=== PATIENT | female | born 1950 | race Caucasian/White ===

== ENCOUNTER 2019-09-29 07:08 | Inpatient (IN) ==
--- NOTE | 2019-09-29 07:22 | Emergency Department Note ---
History of Present Illness General Chief complaint: Chest Pain Stated complaint: SICK/CHEST PAIN Time Seen by Provider: 09/29/19 07:18 Source: patient Mode of arrival: ambulatory History of Present Illness Provider complaint: Chest pain Onset (ago): hour(s) (2 AM this morning) Location: chest and left Radiation: non-radiation Severity: moderate Pain Consistency: + intermittent Maximum Pain Intensity: 5 Quality: + other (Pressure) Exacerbated By: + other (Exertion) Associated symptoms: + nausea/vomiting (Nausea no vomiting); no cough, no fever/chills, no malaise and no shortness of breath This is a 68-year-old female with history of hypertension presenting with chest discomfort. She describes it discomfort as a pressure on the left side of her chest without radiation. She rates it a 5 out of 10 in severity. It started at 2 AM this morning. It is intermittent. It is worse with exertion. It is also associated with diaphoresis and nausea without vomiting. She denies shortness of breath or lightheadedness, cough or cold symptoms or known exposure to COVID- 19. She does complain of chronic edema to her legs without pain. Home Medications Home Medications Medication Instructions Recorded Confirmed Type levothyroxine 25 mcg PO QAM 02/11/18 09/29/19 History metoprolol tartrate 50 mg PO BID 08/08/18 09/29/19 History omega 3-dsa-xrt-fish oil [[place]-3] 2 cap PO UD 10/20/18 09/29/19 History cholecalciferol (vitamin D3) 25 1,000 units PO QAM 12/25/18 09/29/19 History mcg (1,000 unit) capsule folic acid 1 mg tablet 1 mg PO QAM 01/27/19 09/29/19 History spironolactone 50 mg tablet 50 mg PO PM 01/27/19 09/29/19 History amlodipine 10 mg tablet 5 mg PO BID #30 tab 06/03/19 09/29/19 Rx magnesium 250 mg PO 2XWK 09/29/19 09/29/19 History naproxen sodium [Aleve] 220 mg PO Q12H PRN 09/29/19 09/29/19 History Allergies Allergy/AdvReac Type Severity Reaction Status Date / Time codeine Allergy Intermediate Tachycardia Verified 09/29/19 07:52 adhesive AdvReac Mild Redness of Verified 09/29/19 07:52 Skin lisinopril AdvReac Unknown Cough Verified 09/29/19 12:34 Past Med/Surg History Medical History (Updated 09/29/19 @ 14:27 by Hieu Edmondson MD) A-fib (Ruled-out) Acute electrocardiogram changes (Acute) Chest pain (Chronic) Heart palpitations (Acute) Hypertension Hypothyroidism Mitral valve prolapse Surgical History History of cataract surgery Family History Other Cancer Hypertension Social History Preferred Language: Ghanaian Communication Ability: Effective Manager Of Operations Required: No Beliefs That Will Affect Care: None Current Living Situation: Spouse Other Information That Helps Us Care for You: No Feels Safe at Home: Yes Safety Concerns: Feels Safe At This Time Smoking Status: Never smoker Hx Alcohol Use: No Hx Substance Use: No Review of Systems See HPI for pertinent positives & negatives. and A total of 10 systems reviewed and were otherwise negative Physical Exam Vital Signs Vital Signs - 24 hr 09/29/19 07:14 09/29/19 07:29 09/29/19 08:34 Temperature 36.5 C Temperature Source Oral Pulse Rate 70 62 Pulse Rate [Apical] 65 Pulse Rhythm Regular Pulse Rhythm [Apical] Regular Pulse Strength [Apical] Normal Respiratory Rate 20 20 20 Respiratory Effort / Characteristics Non-Labored Non-Labored Spontaneous Respiratory Depth Normal Normal Respiratory Pattern Regular Blood Pressure 172/79 H Blood Pressure [Right Arm] 173/82 H Blood Pressure Mean 110 Blood Pressure Mean [Right Arm] 112 Blood Pressure Position [Right Arm] Sitting Pulse Oximetry 96 97 98 Oxygen Delivery Method Room Air Room Air Room Air Sepsis Recent Fever Within 48 Hours No Sepsis Action Taken by Nursing No Action Required 09/29/19 09:52 Temperature Temperature Source Pulse Rate Pulse Rate [Apical] 77 Pulse Rhythm Pulse Rhythm [Apical] Regular Pulse Strength [Apical] Normal Respiratory Rate 20 Respiratory Effort / Characteristics Non-Labored Spontaneous Respiratory Depth Normal Respiratory Pattern Regular Blood Pressure Blood Pressure [Right Arm] 176/106 H Blood Pressure Mean Blood Pressure Mean [Right Arm] 129 Blood Pressure Position [Right Arm] Sitting Pulse Oximetry 98 Oxygen Delivery Method Room Air Sepsis Recent Fever Within 48 Hours Sepsis Action Taken by Nursing Constitutional: Vital signs reviewed. Eyes: Pupils are equal round reactive to light. Conjunctiva are noninjected. ENT: Pharynx is clear without erythema or exudate. Mucous membranes are moist. Neck supple without meningeal signs. Respiratory: Clear to auscultation bilaterally. Breath sounds are equal bilaterally. Cardiovascular: Regular rate and rhythm. No rubs or gallops. GI: Soft, nondistended and nontender. Bowel sounds are present. Musculoskeletal: No peripheral edema. No lower extremity tenderness. Integumentary: No cyanosis. or jaundice. Neurological: The patient is awake and alert. No focal deficits. Psychiatric: Normal affect. Not anxious appearing. Course Administered Medications Losartan Potassium (Cozaar) 25 mg PO [facility] Stop: 10/29/19 12:44 Last Admin: 09/29/19 13:58 Dose: 25 mg Documented by: [id number] Discontinued Medications Aspirin (Aspirin) 162 mg PO NOW STA Stop: 09/29/19 09:27 Last Admin: 09/29/19 09:56 Dose: Not Given Documented by: [id number] Aspirin (Aspirin Chew) Confirm Administered Dose 162 mg .ROUTE .[facility] Stop: 09/29/19 09:51 Last Admin: 09/29/19 09:55 Dose: 162 mg Documented by: [id number] Lisinopril (Zestril) 5 mg PO [facility] Stop: 10/29/19 12:14 Last Admin: 09/29/19 12:34 Dose: Not Given Documented by: [id number] Nitroglycerin (Nitrostat) 0.4 mg SL NOW [facility] Stop: 09/29/19 08:02 Last Admin: 09/29/19 08:44 Dose: Not Given Documented by: [id number] Ondansetron HCl (Zofran) 4 mg IV NOW [facility] Stop: 09/29/19 07:44 Last Admin: 09/29/19 08:29 Dose: 4 mg Documented by: [id number] Ondansetron HCl (Zofran) 4 mg IV NOW [facility] Stop: 09/29/19 09:14 Last Admin: 09/29/19 09:56 Dose: 4 mg Documented by: [id number] Medical Decision Making Differential Diagnosis Unstable angina, SD, pleurisy, pneumonia, GERD Medical Records Attestation: I reviewed the patient's medical records. I did perform a limited focused review of portions of the patient's old chart on the electronic medical record. The patient has had no recent pertinent visits to this hospital. The patient did have a negative stress echocardiogram in February 2018. Home Medications Current Medication List: was personally reviewed by me Laboratory Data Attestation: I reviewed the patient's lab results. Result diagrams: 09/29/19 07:29 09/29/19 07:29 Lab Results 09/29/19 09/29/19 09/29/19 Range/Units 07:29 07:29 07:29 WBC 6.31 (4.8-10.8) K/uL RBC 5.17 (4.2-5.4) M/uL Hgb 15.6 (12.0-16.0) g/dL Hct 46.4 (37-47) % MCV 89.7 (80-100) fL MCH 30.2 (25-34) pg MCHC 33.6 (32-36) g/dL RDW Std Deviation 44.5 (36.4-46.3) fL RDW Coeff of Che 13.6 (11.5-14.5) % Plt Count 211 (130-400) K/uL MPV 10.3 (7.4-10.4) fL Immature Gran % (Auto) 0.3 % Neut % (Auto) 62.5 % Lymph % (Auto) 28.1 % [place] % (Auto) 8.1 % Eos % (Auto) 0.8 % Baso % (Auto) 0.2 % Immature Gran # (Auto) 0.02 (0.00-0.02) K/uL Neut # (Auto) 3.95 (1.4-6.5) K/uL Lymph # (Auto) 1.77 (1.2-3.4) K/uL [place] # (Auto) 0.51 (0.11-0.59) K/uL Eos # (Auto) 0.05 (0-0.5) K/uL Baso # (Auto) 0.01 (0-0.2) K/uL PT 10.5 (9.0-12.0) Seconds INR 1.0 (0.9-1.1) APTT 29.3 (21.0-31.0) Seconds PTT Ratio 1.1 Sodium 138 (136-145) mmol/L Potassium 4.1 (3.5-5.1) mmol/L Chloride 107 (98-107) mmol/L Carbon Dioxide 25 (21-32) mmol/L Anion Gap 6.0 (3-11) BUN 18 (7-18) mg/dl Creatinine 0.94 (0.6-1.2) mg/dl Est Cr Clr Drug Dosing Not Reportable Est GFR ( Amer) 73.3 Est GFR (Non-Af Amer) 63.2 BUN/Creatinine Ratio 19.6 (10-20) Glucose 132 H (70-99) mg/dl Calcium 9.7 (8.5-10.1) mg/dl Total Bilirubin 0.5 (0.2-1) mg/dl AST 16 (15-37) U/L ALT 25 (12-78) U/L Alkaline Phosphatase 83 (45-117) U/L Troponin I < 0.015 (0-0.045) ng/ml Total Protein 8.1 (6.4-8.2) gm/dl Albumin 4.2 (3.4-5.0) gm/dl Globulin 3.9 (2.5-4.0) gm/dl Albumin/Globulin Ratio 1.1 (0.9-2) Lipase 131 (73-393) U/L Imaging Data Radiologist's Impression: XR chest 1V portable HISTORY: 68 years-old Female Chest Pain acute atypical chest pain COMPARISON: Chest radiograph 10/19/2018 TECHNIQUE: Portable AP view of the chest FINDINGS: Cardiomediastinal and hilar silhouettes are within normal limits. Calcified plaque of the thoracic aortic arch. Ill-defined left basilar opacities suggestive of probable summation density. No pneumothorax, pleural effusion or overt pulmonary edema. Degenerative changes are noted within the shoulders and spine. IMPRESSION: Ill-defined left lung base opacities are suggestive of summation density versus atelectasis. Pneumonitis considered less likely. ACT 112: Negative or not required by law. The above report was generated using voice recognition software. It may contain grammatical, syntax or spelling errors. Electronically signed by: Allan Rivas M.D. 09/29/2019 8:01 AM ECG Data Attestation: I personally reviewed and interpreted this ECG as follows: Indication: + chest pain Rhythm: + normal sinus ECG Intervals/blocks: no Left bundle branch block ECG [place]: + Normal ECG ST segments: no ST depression ECG Findings: no PVCs Blood Pressure Blood Pressure Findings: Elevated blood pressure Blood Pressure Disposition: Referred to patients primary care provider ZULEYKA Plasencia I did evaluate the patient as noted above. The patient is presenting with chest pressure. Currently she has no chest pressure. She is severely hypertensive. Her heart score is 4. She was treated with nitroglycerin paste. He was also given an aspirin. IV access was established. I did place an order for continuous cardiac monitoring. The monitor showed normal sinus rhythm at a rate of 70. I did order and personally review the patient's 12-lead EKG as described above. She has no acute ischemic changes. I did order and personally reviewed the images of the patient's chest x-ray as described above. There is no pneumonia. I did order and review the patient's blood work as noted in the electronic medical record. CBC is unremarkable without leukocytosis or anemia. Electrolytes are unremarkable. Troponin is negative. The test results were discussed with the patient. We did recommend that the patient stay in the hospital for further care and evaluation. She does not qualify for the heart pathway given her heart score of 4. She has been having exertional chest pressure and so she will be hospitalized for repeat cardiac biomarkers and further evaluation. The case was discussed with the hospitalist and case hardener. Resident Physician Supervision Note: I did perform an independent evaluation and examination of this patient as described. I also saw this patient in conjunction with the resident, Dr. Alcala, and guided management for the patient. Impression & Plan Chest pain, exertional Discharge Plan Visit Data *Final* Discharge Date/Time: 09/29/19 11:08 Chief Complaint: Chest Pain Stated Complaint: SICK/CHEST PAIN ED Provider: Hieu Edmondson ED Midlevel Provider: Naga Alcala Discharge Problem: Chest pain, exertional Patient Disposition: Admitted As Inpatient Discharge Instructions Interventions: ED Discharge Assessment Last Done: 09/29/19 11:08
[2019-09-29] MEDS ORDERED: NITROGLYCERIN SL 0.4 MG/TAB TAB SL PRN ×2 (07:43→11:45)
[2019-09-29] MEDS ORDERED: ONDANSETRON INJ 2 MG/ML 2 ML VIAL IV STA ×2 (07:43→09:13)
--- NOTE | 2019-09-29 07:48 | Emergency Department Note ---
ED Visit Note I assisted Dr. Edmondson in the care of this patient. Please see attending attestation. Naga Alcala DO Resident, Family & Community Medicine, [facility] . Resident Activity Tracking Resident Involvement: Resident Care Provided Care Provided: Adult ED
[2019-09-29] MEDS ORDERED: NITROGLYCERIN SL 0.4 MG/TAB TAB SL STA (08:01)
--- NOTE | 2019-09-29 08:03 | XRay Report ---
XR chest 1V portable HISTORY: 68 years-old Female Chest Pain acute atypical chest pain COMPARISON: Chest radiograph 10/19/2018 TECHNIQUE: Portable AP view of the chest FINDINGS: Cardiomediastinal and hilar silhouettes are within normal limits. Calcified plaque of the thoracic ao rtic arch. Ill-defined left basilar opacities suggestive of probable summation density. No pneumothor ax, pleural effusion or overt pulmonary edema. Degenerative changes are noted within the shoulders an d spine. IMPRESSION: Ill-defined left lung base opacities are suggestive of summation density versus atelectas is. Pneumonitis considered less likely. ACT 112: Negative or not required by law. The above report was generated using voice recognition software. It may contain grammatical, syntax o r spelling errors. Electronically signed by: Allan Rivas M.D. 09/29/2019 8:01 AM
[2019-09-29 08:10] LABS: Basophils # (auto) 0.01 K/uL (0-0.2); Basophils % (auto) 0.2 %; Eosinophils # (auto) 0.05 K/uL (0-0.5); Eosinophils % (auto) 0.8 %; Hematocrit (blood only) 46.4 % (37-47); Hemoglobin 15.6 g/dL (12.0-16.0); Immature Granulocytes # (auto) 0.02 K/uL (0.00-0.02); Immature Granulocytes % (auto) 0.3 %; Lymphocytes # (auto) 1.77 K/uL (1.2-3.4); Lymphocytes % (auto) 28.1 %; Mean Corpuscular Hemoglobin 30.2 pg (25-34); Mean Corpuscular Hgb Conc 33.6 g/dL (32-36); Mean Corpuscular Volume 89.7 fL (80-100); Mean Platelet Volume 10.3 fL (7.4-10.4); Monocytes # (auto) 0.51 K/uL (0.11-0.59); Monocytes % (auto) 8.1 %; Neutrophils # (auto) 3.95 K/uL (1.4-6.5); Neutrophils % (auto) 62.5 %; Platelet Count 211 K/uL (130-400); RDW Coefficient of Variation 13.6 % (11.5-14.5); RDW Standard Deviation 44.5 fL (36.4-46.3); Red Blood Count 5.17 M/uL (4.2-5.4); White Blood Count 6.31 K/uL (4.8-10.8)
[2019-09-29 08:16] LABS: Albumin Level 4.2 gm/dl (3.4-5.0); BUN Creatinine Ratio 19.6 (10-20); Blood Urea Nitrogen 18 mg/dl (7-18); Calcium 9.7 mg/dl (8.5-10.1); Carbon Dioxide 25 mmol/L (21-32); Chloride 107 mmol/L (98-107); Est GFR (African American) 73.3; Est GFR (Non-African American) 63.2; Glucose 132 mg/dl (70-99); Lipase 131 U/L (73-393); Potassium 4.1 mmol/L (3.5-5.1); Sodium 138 mmol/L (136-145)
[2019-09-29 08:21] LABS: Alanine Aminotransferase 25 U/L (12-78); Albumin Globulin Ratio 1.1 (0.9-2); Alkaline Phosphatase 83 U/L (45-117); Aspartate Aminotransferase 16 U/L (15-37); Bilirubin,Total 0.5 mg/dl (0.2-1); Globulin 3.9 gm/dl (2.5-4.0); Total Protein 8.1 gm/dl (6.4-8.2); Troponin I < 0.015 ng/ml (0-0.045)
[2019-09-29 08:22] LABS: Partial Thromboplastin Ratio 1.1; Partial Thromboplastin Time 29.3 Seconds (21.0-31.0); Prothrombin Time 10.5 Seconds (9.0-12.0)
[2019-09-29] MEDS ORDERED: ASPIRIN CHEW 324 MG PO STA (09:26)
[2019-09-29] MEDS ORDERED: ASPIRIN 81 MG CHEW ONE (09:50)
--- NOTE | 2019-09-29 11:17 | History & Physical Report ---
Date of Service September 29, 2019 Assessment & Plan (1) Chest pain: Pt is 68 y/o F with PMH HTN, hypothyroidism, PACs, PVCs on metoprolol, h/o atypical CP presented to ER with c/o waking up at 2 AM today, feeling, + nausea and left sided chest heaviness. Denies SOB, vomiting, abdominal pain, diarrhea, dizziness, palpitations. Reported 77 degrees F in her house. Pt states this chest heaviness feels like her chronic intermittent CP however she was nauseated and hot with this episode In ER pt afebrile, P: 70, R: 20, BP: 172/79, 176/106, 96-98% on RA. No leukocytosis, initial troponin negative, EKG sinus rhythm without acute ST changes -In ER CP free, nausea relieved with Zofran IV -R/O ACS. Risk factors: HTN, obesity; CP may also be secondary to HTN -Monitor Vitals -Repeat EKG in am -Will trend troponin -Echo -lipid panel, A1c in AM -Aspirin -Continue metoprolol tartrate -Nitro prn CP and repeat EKG for CP -Cardiology consult (2) Hypertension: Hypertensive in ER up to 176/106 -Continue metoprolol tartrate, spironolactone, amlodipine -Start lisinopril 5mg daily -Montior BP (3) Hypothyroidism: -TSH pending -Continue levothyroxine DVT Prophylaxis -SCDs Full Code as per discussion with pt Follows with Dr Oliveros for routine care Pt was seen and care coordinated with Dr Junior. See addendum History of Present Illness Chief Complaint: Chest heaviness, nausea Primary Care Provider: Zain Oliveros MD Pt is 68 y/o F with PMH HTN, hypothyroidism, PACs, PVCs on metoprolol, h/o atypical CP presented to ER with c/o nausea and chest heaviness that started around 2:00AM this morning. Pt states woke up and felt very hot, was sweating an d had left sided chest heaviness. She denies any SOB with this. Reports tried to sit still because moving made her nausea worse. Denies any vomiting, abdominal pain, diarrhea, dizziness, palpitations. Pt states is was 77F in her house when she woke up in the middle of the night. She reports taking 162mg aspirin and going out to living room and felt like she "cooled off" but still had nausea and chest heaviness. Pt states this chest heaviness feels like her chronic intermittent CP however she was nauseated and hot with this episode. She reports has been having BLE edema that improves with elevated legs and feels this is more since being on amlodipine. She follows with [facility] and in 01/2019 was instructed to decrease amlodipine to 7.5mg daily, however pt states has been taking 5mg BID. Reports taking her spironolactone at bedtime and states had 5mg amlodipine and 50mg metoprolol tartrate this morning. Pt states that in past she was on irbesartan however did not feel that was effective for her BP. Pt states doesn't check her BP regularly at home, but states took BP in middle of night and was 200/100. States she made a salad with mushrooms yesterday, no other family members with illness. Denies fever/chills, diaphoresis, N/V/D/C, [place], dizziness, syncope, vision changes, neck pain, orthopnea, palpitations, cough, sore throat, choking, otalgia, rhinorrhea, abdominal pain, paresthesias, weakness, extremity weakness, extremity edema, rashes, urinary symptoms. H/O cardiac cath in 2010 with normal coronary arteries H/O exercise stress test in 02/2018 with no inducible ischemia Echo 02/2018: EF: 60-65%, no wall motion abnormalities, no significant valvular pathology. In ER pt was given additional 162mg aspirin and zofran and she reports no further nausea and denies any chest heaviness or CP. Allergies Allergy/AdvReac Type Severity Reaction Status Date / Time codeine Allergy Intermediate Tachycardia Verified 09/29/19 07:52 adhesive AdvReac Mild Redness of Verified 09/29/19 07:52 Skin lisinopril AdvReac Unknown Cough Verified 09/29/19 12:34 Home Medications Home Medications Medication Instructions Recorded Confirmed Type levothyroxine 25 mcg PO QAM 02/11/18 09/29/19 History metoprolol tartrate 50 mg PO BID 08/08/18 09/29/19 History omega 6-mda-dcg-fish oil [[place]-3] 2 cap PO UD 10/20/18 09/29/19 History cholecalciferol (vitamin D3) 25 1,000 units PO QAM 12/25/18 09/29/19 History mcg (1,000 unit) capsule folic acid 1 mg tablet 1 mg PO QAM 01/27/19 09/29/19 History spironolactone 50 mg tablet 50 mg PO PM 01/27/19 09/29/19 History amlodipine 10 mg tablet 5 mg PO BID #30 tab 06/03/19 09/29/19 Rx magnesium 250 mg PO 2XWK 09/29/19 09/29/19 History naproxen sodium [Aleve] 220 mg PO Q12H PRN 09/29/19 09/29/19 History Past Med/Surg History Medical History (Updated 09/29/19 @ 11:25 by Abbey Sandhu PA-C) A-fib (Ruled-out) Acute electrocardiogram changes (Acute) Chest pain (Chronic) Heart palpitations (Acute) Hypertension Hypothyroidism Mitral valve prolapse Surgical History History of cataract surgery Family History Other Cancer Hypertension Social History Preferred Language: St [place]ian Communication Ability: Effective [employer] Feeder Required: No Beliefs That Will Affect Care: None Current Living Situation: Family Feels Safe at Home: Yes Smoking Status: Never smoker Hx Alcohol Use: No Hx Substance Use: No Review of Systems Review of Systems: All systems reviewed & are unremarkable except as noted in HPI & below Physical Exam Physical Exam: General: no distress, obese Head: normocephalic, atraumatic Eyes: PERRL, EOM's intact, conjunctiva non-injected, anicteric ENT: normal inspection external ears, nose, mucous membranes moist Neck: supple, trachea midline Lungs: clear, no respiratory distress, no wheezing/rhonchi/rales CV: RRR, no murmur, no JVD, trace pretibial edema; chest wall non-tender to palpation Abd: normal BS, soft, non-tender Ext: no cyanosis, no calf tenderness Neuro: A&O x 3, no focal deficits noted, normal affect Skin: warm, dry Results & Data Results & Data ([facility]) Vital Signs (Past 12 Hours) Vital Signs Temp Pulse Pulse Resp BP BP Pulse Ox 09/29/19 09:52 77 20 176/106 H 98 09/29/19 08:34 65 20 173/82 H 98 09/29/19 07:29 62 20 97 09/29/19 07:14 36.5 C 70 20 172/79 H 96 Laboratory Results Short CBC 09/29/19 Range/Units 07:29 WBC 6.31 (4.8-10.8) K/uL Hgb 15.6 (12.0-16.0) g/dL Hct 46.4 (37-47) % Plt Count 211 (130-400) K/uL BMP 09/29/19 07:29 Sodium 138 Potassium 4.1 Chloride 107 Carbon Dioxide 25 BUN 18 Creatinine 0.94 Glucose 132 H Calcium 9.7 Cardiac Enzymes 09/29/19 Range/Units 07:29 Troponin I < 0.015 (0-0.045) ng/ml Liver Function 09/29/19 Range/Units 07:29 Total Bilirubin 0.5 (0.2-1) mg/dl AST 16 (15-37) U/L ALT 25 (12-78) U/L Alkaline Phosphatase 83 (45-117) U/L Albumin 4.2 (3.4-5.0) gm/dl Diagnostic Findings CXR: IMPRESSION: Ill-defined left lung base opacities are suggestive of summation d ensity versus atelectasis. Pneumonitis considered less likely. ECG Rate (beats per minute): 65 Rhythm: sinus rhythm Change: no significant change Supervising Physician Co-Signing Physician Notes Pt was seen and examined. Agreed with Abbey HOLGUIN exam, assessment and plan. 68 y/o F with PMH HTN, hypothyroidism, PACs, PVCs on metoprolol, h/o atypical CP presented to ER with c/o chest heaviness associated with sweating and nausea. Pt said that she woke up at 2am and felt very hot, was sweating and had left sided chest heaviness. She said that the Temp in the house was 77F. She said that she checked her BP and it was above 200's systolic. She said that she had history of atypical chest pain, but this one is different because of the nausea and sweating. Currently lying in bed comfortable. Denies any vomiting, chest pain, abdominal pain, diarrhea, dizziness, palpitations and SOB. On exam, Heart rate was regular, Clear lung sound, No abdominal tenderness, No edema. Troponin on admission normal. EKG showed no acute ischemic changes. Will trend troponinx2, Check ECHO. Cardiology consult. Will continue aspirin, statin, metoprolol. BP elevated, will add Losartan and continue Metoprolol and Spironolactone. Will monitor BMP as well in am. Continue monitor in tele. MD [place] (1) Chest pain Chest pain type: unspecified Qualified Code(s): R07.9 - Chest pain, unspecified
[2019-09-29] MEDS ORDERED: ONDANSETRON INJ 2 MG/ML 2 ML VIAL IV PRN (11:45)
[2019-09-29] MEDS ORDERED: ACETAMINOPHEN 325 MG TAB PO PRN (11:45)
[2019-09-29] MEDS ORDERED: lisinopriL 5 MG TAB PO SCH (12:15)
--- NOTE | 2019-09-29 13:36 | Cardiology Consultation ---
Date of Consultation September 29, 2019 Assessment & Plan (1) Atypical chest pain: Martine Boss is a 68y/o F with PMH significant for hypertension, hypothyroidism, atypical chest pain, and lower extremity edema; presented to the hospital for evaluation of chest discomfort that started overnight. Atypical chest pain: - atypical features of chest pain, lend to non-cardiac causes - two undetectable Troponins more than 4 hours after chest pain event - Echo form 09/29/2019 demonstrated LVEF 60-65%, no regional wall abnormalities, no significant valvular pathology - no current indication for further cardiac testing Uncontrolled Hypertension: - upon waking overnight had BP 207/110; elevated BP maintained in ED - previously difficult to control BP with elevated ranges dating back to office visits 08/2018 & 10/2018 demonstrated BPs as elevated as 241/91 - current home regimen includes Metroprolol, spironolactone, and amlodipine - previously had cough while on ALFRED - Losartan 25mg started, would advised discontinuation of Amlodipine - no described apneic episodes however sleep study would be indicated as this patient's BP continues to remain uncontrolled Peripheral edema: - likely 2/2 chronic use of Amlodipine given Echo demonstrating normal left ventricular systolic function - would discontinue amlodipine at this time in setting of worsening edema with uncontrolled HTN (2) Uncontrolled hypertension: (3) Peripheral edema: Supervising Physician Co-Signing Physician Notes Patient seen and examined with Dr. Shea. Agree with his assessment and plan. History of Present Illness Attending Physician: Evi Junior MD History of Present Illness Martine Boss is a 68y/o F with PMH significant for hypertension, hypothyroidism, atypical chest pain, and lower extremity edema; presented to the hospital for evaluation of chest discomfort that started overnight. She woke at about 2am this morning chest tightness, with increased sweats, and feelings of nausea. This tightness was mainly noticed in three spots, center of her chest, under her left breast, and in the center of her back. The pain did not radiate to her arm, jaw, or back. This chest discomfort was similar in quality to episodes she previously had when she was seen and evaluated in February 2018, and at that time she was told she had PACs and PVCs. After taking two 81mg tablets she no longer felt hot nor had maintained sweats, however the nausea and chest heaviness was maintained. Had complete relief of chest heaviness and nausea in ED following administration of Zofran and two more 81mg tablets of aspirin. She denies vomiting, diarrhea, constipation, dizziness, syncope, vision change, shortness of breath when laying flat; but notes that she has had lower extremity edema since starting on Amlodipine several years ago, occasionally this will worsen to the point that she takes a second diuretic in order to move the fluid. The fluid/swelling is improved with elevation of her feet. Allergies Allergy/AdvReac Type Severity Reaction Status Date / Time codeine Allergy Intermediate Tachycardia Verified 09/29/19 07:52 adhesive AdvReac Mild Redness of Verified 09/29/19 07:52 Skin lisinopril AdvReac Unknown Cough Verified 09/29/19 12:34 Home Medications Home Medications Medication Instructions Recorded Confirmed Type levothyroxine 25 mcg PO QAM 02/11/18 09/29/19 History metoprolol tartrate 50 mg PO BID 08/08/18 09/29/19 History omega 1-uyz-jmn-fish oil [[place]-3] 2 cap PO UD 10/20/18 09/29/19 History cholecalciferol (vitamin D3) 25 1,000 units PO QAM 12/25/18 09/29/19 History mcg (1,000 unit) capsule folic acid 1 mg tablet 1 mg PO QAM 01/27/19 09/29/19 History spironolactone 50 mg tablet 50 mg PO PM 01/27/19 09/29/19 History amlodipine 10 mg tablet 5 mg PO BID #30 tab 06/03/19 09/29/19 Rx magnesium 250 mg PO 2XWK 09/29/19 09/29/19 History naproxen sodium [Aleve] 220 mg PO Q12H PRN 09/29/19 09/29/19 History Patient History Medical History (Updated 09/29/19 @ 14:27 by Hieu Edmondson MD) A-fib (Ruled-out) Acute electrocardiogram changes (Acute) Chest pain (Chronic) Heart palpitations (Acute) Hypertension Hypothyroidism Mitral valve prolapse Surgical History History of cataract surgery Family History Other Cancer Hypertension Social History Preferred Language: Sinhala Communication Ability: Effective Associate Application Developer Required: No Beliefs That Will Affect Care: None Current Living Situation: Spouse Other Information That Helps Us Care for You: No Feels Safe at Home: Yes Safety Concerns: Feels Safe At This Time Smoking Status: Never smoker Hx Alcohol Use: No Hx Substance Use: No Review of Systems Review of Systems: All systems reviewed & are unremarkable except as noted in HPI & below Physical Exam Constitutional: WD/WN, vitals as above Eyes: PERRL, conjunctivae normal, anicteric sclerae ENMT: external ear and nose normal, oropharynx normal Neck: normal visual inspection Respiratory: normal respiratory effort, lungs clear to auscultation Auscultation: no crackles, no rales and no wheezes Cardiovascular: Rate/Rhythm: regular rate and regular rhythm Heart Sounds: normal S1 and normal S2; no gallop, no murmur and no cardiac rub Vessels: no JVD Extremities: + pedal edema (2+ pitting b/l LE) Gastrointestinal (Abdomen): normal bowel sounds, soft, nontender, no hepatosplenomegaly Skin: + skin tightening (venous stasis changes to b/l LE) Results & Data ([facility]) Vital Signs (Past 12 Hours) Vital Signs Temp Pulse Pulse Resp BP BP Pulse Ox 09/29/19 12:25 36.5 C 63 18 166/74 H 96 09/29/19 09:52 77 20 176/106 H 98 09/29/19 08:34 65 20 173/82 H 98 09/29/19 07:29 62 20 97 09/29/19 07:14 36.5 C 70 20 172/79 H 96 Laboratory Results 09/29/19 09/29/19 09/29/19 Range/Units 12:50 07:29 07:29 WBC (4.8-10.8) K/uL RBC (4.2-5.4) M/uL Hgb (12.0-16.0) g/dL Hct (37-47) % MCV (80-100) fL MCH (25-34) pg MCHC (32-36) g/dL RDW Std Deviation (36.4-46.3) fL RDW Coeff of Che (11.5-14.5) % Plt Count (130-400) K/uL MPV (7.4-10.4) fL Immature Gran % (Auto) % Neut % (Auto) % Lymph % (Auto) % Eagle % (Auto) % Eos % (Auto) % Baso % (Auto) % Immature Gran # (Auto) (0.00-0.02) K/uL Neut # (Auto) (1.4-6.5) K/uL Lymph # (Auto) (1.2-3.4) K/uL Eagle # (Auto) (0.11-0.59) K/uL Eos # (Auto) (0-0.5) K/uL Baso # (Auto) (0-0.2) K/uL PT 10.5 (9.0-12.0) Seconds INR 1.0 (0.9-1.1) APTT 29.3 (21.0-31.0) Seconds PTT Ratio 1.1 Sodium 138 (136-145) mmol/L Potassium 4.1 (3.5-5.1) mmol/L Chloride 107 (98-107) mmol/L Carbon Dioxide 25 (21-32) mmol/L Anion Gap 6.0 (3-11) BUN 18 (7-18) mg/dl Creatinine 0.94 (0.6-1.2) mg/dl Est Cr Clr Drug Dosing Not Reportable Est GFR ( Amer) 73.3 Est GFR (Non-Af Amer) 63.2 BUN/Creatinine Ratio 19.6 (10-20) Glucose 132 H (70-99) mg/dl Calcium 9.7 (8.5-10.1) mg/dl Total Bilirubin 0.5 (0.2-1) mg/dl AST 16 (15-37) U/L ALT 25 (12-78) U/L Alkaline Phosphatase 83 (45-117) U/L Troponin I Pending < 0.015 (0-0.045) ng/ml Total Protein 8.1 (6.4-8.2) gm/dl Albumin 4.2 (3.4-5.0) gm/dl Globulin 3.9 (2.5-4.0) gm/dl Albumin/Globulin Ratio 1.1 (0.9-2) Lipase 131 (73-393) U/L 05/26/20 Range/Units 07:29 WBC 6.31 (4.8-10.8) K/uL RBC 5.17 (4.2-5.4) M/uL Hgb 15.6 (12.0-16.0) g/dL Hct 46.4 (37-47) % MCV 89.7 (80-100) fL MCH 30.2 (25-34) pg MCHC 33.6 (32-36) g/dL RDW Std Deviation 44.5 (36.4-46.3) fL RDW Coeff of Che 13.6 (11.5-14.5) % Plt Count 211 (130-400) K/uL MPV 10.3 (7.4-10.4) fL Immature Gran % (Auto) 0.3 % Neut % (Auto) 62.5 % Lymph % (Auto) 28.1 % Eagle % (Auto) 8.1 % Eos % (Auto) 0.8 % Baso % (Auto) 0.2 % Immature Gran # (Auto) 0.02 (0.00-0.02) K/uL Neut # (Auto) 3.95 (1.4-6.5) K/uL Lymph # (Auto) 1.77 (1.2-3.4) K/uL Eagle # (Auto) 0.51 (0.11-0.59) K/uL Eos # (Auto) 0.05 (0-0.5) K/uL Baso # (Auto) 0.01 (0-0.2) K/uL PT (9.0-12.0) Seconds INR (0.9-1.1) APTT (21.0-31.0) Seconds PTT Ratio Sodium (136-145) mmol/L Potassium (3.5-5.1) mmol/L Chloride (98-107) mmol/L Carbon Dioxide (21-32) mmol/L Anion Gap (3-11) BUN (7-18) mg/dl Creatinine (0.6-1.2) mg/dl Est Cr Clr Drug Dosing Est GFR ( Amer) Est GFR (Non-Af Amer) BUN/Creatinine Ratio (10-20) Glucose (70-99) mg/dl Calcium (8.5-10.1) mg/dl Total Bilirubin (0.2-1) mg/dl AST (15-37) U/L ALT (12-78) U/L Alkaline Phosphatase (45-117) U/L Troponin I (0-0.045) ng/ml Total Protein (6.4-8.2) gm/dl Albumin (3.4-5.0) gm/dl Globulin (2.5-4.0) gm/dl Albumin/Globulin Ratio (0.9-2) Lipase (73-393) U/L Medications Administered Current Inpatient Medications Acetaminophen (Tylenol) 650 mg PO Q4H PRN PRN Reason: Pain or Fever Stop: 10/29/19 11:44 Amlodipine Besylate (Norvasc) 5 mg PO BID [facility] Stop: 10/29/19 20:59 Aspirin (Ecotrin Ectab) 81 mg PO QAM [facility] Stop: 10/30/19 08:59 Levothyroxine Sodium (Synthroid) 25 mcg PO DAILYBB [facility] Stop: 10/30/19 06:29 Losartan Potassium (Cozaar) 25 mg PO QAM [facility] Stop: 10/29/19 12:44 Metoprolol Tartrate (Lopressor) 50 mg PO BID [facility] Stop: 10/29/19 20:59 Nitroglycerin (Nitrostat) 0.4 mg SL UD PRN PRN Reason: Chest Pain Stop: 10/29/19 11:44 Ondansetron HCl (Zofran) 4 mg IV Q6H PRN PRN Reason: Nausea Stop: 10/29/19 11:44 Spironolactone (Aldactone) 50 mg PO PM [facility] Stop: 10/29/19 20:59 Vitamin D (Vitamin D3) 1,000 units PO QAM [facility] Stop: 10/30/19 08:59 PG Care Time/CCT Total # of Minutes Spent Total Time Spent with Patient: Total time spent is greater than 50% in co ordination of care (as documented) at patient's floor/unit and/or counseling patient: Coding Level of Care Code 96288 Inpt Consult Level 4 Diagnoses Atypical chest pain R07.89 Uncontrolled hypertension I10 Peripheral edema R60.9 Resident Activity Tracking Resident Involvement: Resident Care Provided Care Provided: Adult Hospital Medicine (Cardiology)
[2019-09-29] MEDS: LOSARTAN POTASSIUM 25 MG TAB PO SCH (13:58)
--- NOTE | 2019-09-29 16:05 | Electrocardiogram Report ---
Test Reason : Blood Pressure : / mmHG Vent. Rate : 065 BPM Atrial Rate : 065 BPM P-R Int : 136 ms QRS Dur : 074 ms QT Int : 410 ms P-R-T Axes : 029 041 027 degrees QTc Int : 426 ms Normal sinus rhythm Normal ECG When compared with ECG of 19-OCT-2018 23:40, No significant change was found Confirmed by Malcolm Perez ([id number]) on 09/29/2019 4:04:45 PM Referred By: REFERRED SELF Confirmed By:Malcolm Perez
--- NOTE | 2019-09-29 16:06 | XCELERA ---
[id number]
[2019-09-29] MEDS: METOPROLOL TARTRATE 50 MG TAB PO SCH (20:29)
[2019-09-29] MEDS ORDERED: SPIRONOLACTONE 25 MG TAB PO SCH (21:00)
[2019-09-29] MEDS ORDERED: AMLODIPINE BESYLATE 5 MG TAB PO SCH (21:00)
[2019-09-30] MEDS ORDERED: LEVOTHYROXINE SODIUM 25 MCG TABLET PO SCH (06:30)
[2019-09-30] MEDS: LOSARTAN POTASSIUM 25 MG TAB PO SCH (08:02)
[2019-09-30] MEDS: METOPROLOL TARTRATE 50 MG TAB PO SCH (08:02)
[2019-09-30 08:17] LABS: Hematocrit (blood only) 45.2 % (37-47); Mean Corpuscular Hemoglobin 30.1 pg (25-34); Mean Corpuscular Hgb Conc 33.2 g/dL (32-36); Mean Corpuscular Volume 90.6 fL (80-100); Platelet Count 188 K/uL (130-400); RDW Coefficient of Variation 13.7 % (11.5-14.5); RDW Standard Deviation 45.3 fL (36.4-46.3); Red Blood Count 4.99 M/uL (4.2-5.4); White Blood Count 4.96 K/uL (4.8-10.8)
[2019-09-30 08:29] LABS: Estimated Average Glucose 128 mg/dl; Hemoglobin A1C 6.1 % (4.5-5.6)
[2019-09-30 08:49] LABS: BUN Creatinine Ratio 17.7 (10-20); Calcium 9.5 mg/dl (8.5-10.1); Creatinine Clr Calc Pharmacy 56.6 ml/min; Est GFR (Non-African American) 58.7; Potassium 4.1 mmol/L (3.5-5.1)
[2019-09-30 08:59] LABS: Thyroid Stimulating Hormone 3.09 uIu/ml (0.300-4.500)
[2019-09-30] MEDS ORDERED: ASPIRIN 81 MG ECTAB PO SCH (09:00)
[2019-09-30] MEDS ORDERED: CHOLECALCIFEROL 1,000 UNITS 25 MCG TAB PO SCH (09:00)
--- NOTE | 2019-09-30 11:45 | Hospitalist Progress Note ---
Date of Service September 30, 2019 Assessment & Plan (1) Chest pain: ATYPICAL CHEST PAIN PERIPHERAL EDEMA -Pt is 68 y/o F with PMH HTN, hypothyroidism, PACs, PVCs on metoprolol, h/o atypical CP presented to ER with c/o waking up at 2 AM today, feeling, + nausea and left sided chest heaviness. Denies SOB, vomiting, abdominal pain, diarrhea, dizziness, palpitations. Reported 77 degrees F in her house. Pt states this chest heaviness feels like her chronic intermittent CP however she was nauseated and hot with this episode -In ER pt afebrile, P: 70, R: 20, BP: 172/79, 176/106, 96-98% on RA. No leukocytosis, initial troponin negative, EKG sinus rhythm without acute ST changes -In ER CP free, nausea relieved with Zofran IV Patient was evaluated by cardiology service " atypical features of chest pain, lend to non-cardiac causes - two undetectable Troponins more than 4 hours after chest pain event - Echo form 09/29/2019 demonstrated LVEF 60-65%, no regional wall abnormalities, no significant valvular pathology - no current indication for further cardiac testing" "- no described apneic episodes however sleep study would be indicated as this patient's BP continues to remain uncontrolled" "Peripheral edema: likely 2/2 chronic use of Amlodipine given Echo demonstrating normal left ventricular systolic function. would discontinue amlodipine at this time in setting of worsening edema with uncontrolled HTN" -discharge medication of losartan of 25 mg daily printed as paper prescription. Losartan medication is to replace amlodipine medication for blood pressure when discharged home -Patient preferred pharmacy is [address] [place] [address]. -Patient will need to follow up with primary care doctor for follow up of blood pressures -scheduled appointment: 10/06/2019 12:00 PM Provider DO [facility] (2) Hypertension: Hypertensive in ER up to 176/106 -Continue metoprolol tartrate, spironolactone -losartan daily (3) Hypothyroidism: -TSH is 3 -Continue levothyroxine Admission and Anticipated Discharge Date Admission Date: September 29, 2019 Subjective patient at the breakfast without symptoms. no nausea. no vomiting. no chest pain. no back pain. no shortness of breath. blood pressure better today. no dizziness. no lightheadedness. discharge plans discussed at length Review of Systems Review of Systems: All systems reviewed & are unremarkable except as noted in Subjective Physical Exam Constitutional: WD/WN, vitals as above Eyes: PERRL, conjunctivae normal, anicteric sclerae ENMT: external ear and nose normal, oropharynx normal Neck: normal visual inspection Respiratory: normal respiratory effort, lungs clear to auscultation Cardiovascular: Rate/Rhythm: + bradycardic (bilateral pedal edema) Gastrointestinal (Abdomen): normal bowel sounds, soft, nontender, no hepatosplenomegaly Musculoskeletal: Head/Neck/Chest: normocephalic and head atraumatic Neurologic: PERRL, EOMI, accommodation nl, no face palsy, no dysarthria CN's II-XI intact bilaterally Psychiatric: A+Ox3, euthymic affect Results & Data Results & Data ([facility]) Vital Signs (Past 12 Hours) Vital Signs Temp Pulse Resp BP Pulse Ox 09/30/19 07:41 36.4 C L 62 18 134/72 93 09/30/19 03:54 36.7 C 70 18 125/53 L 97 09/29/19 23:48 36.8 C 66 20 96/57 L 96 (1) Chest pain Chest pain type: unspecified Qualified Code(s): R07.9 - Chest pain, unspecified
[2019-09-30 11:49] VITALS: BP 138/72; PULSE 58; TEMP 97.7; O2SAT 92
--- NOTE | 2019-09-30 11:52 | Discharge Summary ---
Date of Service September 30, 2019 Admission HPI Per Admitting Provider Pt is 68 y/o F with PMH HTN, hypothyroidism, PACs, PVCs on metoprolol, h/o atypical CP presented to ER with c/o nausea and chest heaviness that started around 2:00AM this morning. Pt states woke up and felt very hot, was sweating and had left sided chest heaviness. She denies any SOB with this. Reports tried to sit still because moving made her nausea worse. Denies any vomiting, abdominal pain, diarrhea, dizziness, palpitations. Pt states is was 77F in her house when she woke up in the middle of the night. She reports taking 162mg aspirin and going out to living room and felt like she "cooled off" but still had nausea and chest heaviness. Pt states this chest heaviness feels like her chronic intermittent CP however she was nauseated and hot with this episode. She reports has been having BLE edema that improves with elevated legs and feels this is more since being on amlodipine. She follows with [facility] Cardiology and in 01/2019 was instructed to decrease amlodipine to 7.5mg daily, however pt states has been taking 5mg BID. Reports taking her spironolactone at bedtime and states had 5mg amlodipine and 50mg metoprolol tartrate this morning. Pt states that in past she was on irbesartan however did not feel that was effective for her BP. Pt states doesn't check her BP regularly at home, but states took BP in middle of night and was 200/100. States she made a salad with mushrooms yesterday, no other family members with illness. Denies fever/chills, diaphoresis, N/V/D/C, [place], dizziness, syncope, vision changes, neck pain, orthopnea, palpitations, cough, sore throat, choking, otalgia, rhinorrhea, abdominal pain, paresthesias, weakness, extremity weakness, extremity edema, rashes, urinary symptoms. H/O cardiac cath in 2010 with normal coronary arteries H/O exercise stress test in 02/2018 with no inducible ischemia Echo 02/2018: EF: 60-65%, no wall motion abnormalities, no significant valvular pathology. In ER pt was given additional 162mg aspirin and zofran and she reports no further nausea and denies any chest heaviness or CP. Principal Diagnosis Atypical Chest Pain Hypertension Peripheral Edema Hypothyroidism Discharge Exam Constitutional WD/WN, vitals as above Eyes PERRL, conjunctivae normal, anicteric sclerae ENMT external ear and nose normal, oropharynx normal Neck normal visual inspection Respiratory normal respiratory effort, lungs clear to auscultation Cardiovascular Rate/Rhythm: + bradycardic (bilateral pedal edema) Gastrointestinal (Abdomen) normal bowel sounds, soft, nontender, no hepatosplenomegaly Musculoskeletal Head/Neck/Chest: normocephalic and head atraumatic Neurologic PERRL, EOMI, accommodation nl, no face palsy, no dysarthria CN's II-XI intact bilaterally Psychiatric A+Ox3, euthymic affect Discharge Data Allergies Allergy/AdvReac Type Severity Reaction Status Date / Time codeine Allergy Intermediate Tachycardia Verified 09/29/19 07:52 adhesive AdvReac Mild Redness of Verified 09/29/19 07:52 Skin lisinopril AdvReac Unknown Cough Verified 09/29/19 12:34 Consultations 09/29/19 10:25 ED Decision to Admit Stat 09/29/19 11:57 Consult Cardiology Routine Hospital Course (1) Chest pain: ATYPICAL CHEST PAIN PERIPHERAL EDEMA -Pt is 68 y/o F with PMH HTN, hypothyroidism, PACs, PVCs on metoprolol, h/o atypical CP presented to ER with c/o waking up at 2 AM today, feeling, + nausea and left sided chest heaviness. Denies SOB, vomiting, abdominal pain, diarrhea, dizziness, palpitations. Reported 77 degrees F in her house. Pt states this chest heaviness feels like her chronic intermittent CP however she was nauseated and hot with this episode -In ER pt afebrile, P: 70, R: 20, BP: 172/79, 176/106, 96-98% on RA. No leukocytosis, initial troponin negative, EKG sinus rhythm without acute ST changes -In ER CP free, nausea relieved with Zofran IV Patient was evaluated by cardiology service " atypical features of chest pain, lend to non-cardiac causes - two undetectable Troponins more than 4 hours after chest pain event - Echo form 09/29/2019 demonstrated LVEF 60-65%, no regional wall abnormalities, no significant valvular pathology - no current indication for further cardiac testing" "- no described apneic episodes however sleep study would be indicated as this patient's BP continues to remain uncontrolled" "Peripheral edema: likely 2/2 chronic use of Amlodipine given Echo demonstrating normal left ventricular systolic function. would discontinue amlodipine at this time in setting of worsening edema with uncontrolled HTN" -discharge medication of losartan of 25 mg daily printed as paper prescription. Losartan medication is to replace amlodipine medication for blood pressure when discharged home -Patient preferred pharmacy is [facility] [place] [address], [place] [address]. -Patient will need to follow up with primary care doctor for follow up of blood pressures -scheduled appointment: 10/06/2019 12:00 PM Provider Ck [facility] (2) Hypertension: Hypertensive in ER up to 176/106 -Continue metoprolol tartrate, spironolactone -losartan daily (3) Hypothyroidism: -TSH is 3 -Continue levothyroxine Total Time Total Time Spent Total Time Spent (In Minutes): 40 minutes Total Time Includes: Examination of the Patient, Discharge Planning, Medication Reconciliation and Communication With Other Providers Discharge Plan Discharge Items Patient Disposition: Home - Self-Care Reason For Visit: CP Discharge Diagnosis: atypical chest pain. hypertension. peripheral edema. hypothyrodism Condition on Discharge: Good Activity: Resume your previous activity Non-emergency contact: Primary Care Provider Call non-emergency contact if: you have any medication questions Follow-up/Referrals: Zain Oliveros MD [Primary Care Provider] - 10/06/19 12:00 pm (10/06/2019 12:00 PM Provider Ck [facility] ) Diet: Regular Addtl Attending Provider Instructions: Patient was evaluated by cardiology service " atypical features of chest pain, lend to non-cardiac causes - two undetectable Troponins more than 4 hours after chest pain event - Echo form 09/29/2019 demonstrated LVEF 60-65%, no regional wall abnormalities, no significant valvular pathology - no current indication for further cardiac testing" "- no described apneic episodes however sleep study would be indicated as this patient's BP continues to remain uncontrolled" "Peripheral edema: likely 2/2 chronic use of Amlodipine given Echo demonstrating normal left ventricular systolic function. would discontinue amlodipine at this time in setting of worsening edema with uncontrolled HTN" discharge medication of losartan of 25 mg daily printed as paper prescription. Losartan medication is to replace amlodipine medication for blood pressure when discharged home Patient preferred pharmacy is [facility] [address] [place] [address]. Patient will need to follow up with primary care doctor for follow up of blood pressures TSH is 3.continue home dose Levothyroxine scheduled appointment: 10/06/2019 12:00 PM Provider DO [facility] Pending Studies at Discharge: No Stand-Alone Forms: [facility], Smoking Cessation Medications and DC Order Prescriptions: New losartan 25 mg Tablet 25 mg PO QAM 30 Days Qty: 30 RF: 0 Continued spironolactone 50 mg tablet 50 mg PO PM RF: 0 folic acid 1 mg tablet 1 mg PO QAM RF: 0 cholecalciferol (vitamin D3) 1,000 unit capsule 1,000 units PO QAM RF: 0 metoprolol tartrate 50 mg tablet 50 mg PO BID RF: 0 [place]-3 350 mg-235 mg- 90 mg-597 mg Capsule,Delayed Release(Dr/Ec) 2 cap PO UD RF: 0 naproxen sodium [Aleve] 220 mg Tablet 220 mg PO Q12H PRN (Reason: Pain) RF: 0 magnesium 250 mg Tablet 250 mg PO 2XWK RF: 0 levothyroxine 25 mcg tablet 25 mcg PO QAM RF: 0 Discontinued amlodipine 10 mg tablet 5 mg PO BID Qty: 30 RF: 2 Discharge Orders: Discharge Order (Routine); Ordered 09/30/19 Ordered By: Ap Mayorga/Other Patient Handouts: Prediabetes, A1C Admission Data Admit Date/Time: 09/29/19 10:39 Attending Provider: Ap Kirk Admit Provider: Evi Junior Primary Care Provider: Zain Oliveros Other Providers: Evi Junior ; Malcolm Perez
== END 2019-09-30 12:45 | disposition home or self-care (01) | DRG 305 ==
LOC: ED 07:08 → 2N 10:39 → SUATTDRO 10:39 → 2N 11:08

== ENCOUNTER 2022-11-19 15:23 | Observation (INO) ==
[2022-11-19] MEDS ORDERED: ASPIRIN CHEW 324 MG PO STA (15:33)
[2022-11-19] MEDS ORDERED: NITROGLYCERIN SL 0.4 MG/TAB TAB SL PRN (15:33)
[2022-11-19] MEDS ORDERED: ONDANSETRON INJ 2 MG/ML 2 ML VIAL IV STA (15:33)
--- NOTE | 2022-11-19 15:33 | ED Triage Note ---
Date of Service November 19, 2022 History of Present Illness This patient was briefly evaluated while in triage. An abbreviated physical exam was performed. This patient is a 71-year-old Female who presents to the ED for evaluation of Chest pain started this morning 0300 woke her from sleep 9/10 pain associated nausea took ASA and Advil Pain has been constant Physical Exam GENERAL: Mildly anxious, markedly hypertensive CARDIOVASCULAR: RRR RESPIRATORY: CTA ABDOMEN: BS x 4. Nontender to palpation. Initial orders for labs and / or imaging were placed and patient was placed in the waiting area until a bed is available. Please see further documentation for the full ED course.
[2022-11-19 16:13] LABS: Basophils # (auto) 0.01 K/uL (0-0.2); Basophils % (auto) 0.2 %; Eosinophils # (auto) 0.03 K/uL (0-0.50); Eosinophils % (auto) 0.6 %; Hematocrit (blood only) 44.1 % (37.0-47.0); Hemoglobin 14.8 g/dl (12.0-16.0); Immature Granulocytes # (auto) 0.01 K/uL (0.01-0.20); Immature Granulocytes % (auto) 0.2 %; Lymphocytes # (auto) 1.75 K/uL (1.2-3.4); Lymphocytes % (auto) 32.2 %; Mean Corpuscular Hemoglobin 30.1 pg (25.0-34.0); Mean Corpuscular Hgb Conc 33.6 g/dL (32.0-36.0); Mean Corpuscular Volume 89.6 fL (80.0-100.0); Mean Platelet Volume 10.2 fL (9.4-12.4); Monocytes # (auto) 0.38 K/uL (0.11-0.59); Neutrophils # (auto) 3.26 K/uL (1.40-6.50); Neutrophils % (auto) 59.8 %; Platelet Count 178 K/uL (130-400); RDW Coefficient of Variation 13.4 % (11.5-14.5); RDW Standard Deviation 43.8 fL (36.4-46.3); Red Blood Count 4.92 M/uL (4.20-5.40); White Blood Count 5.44 K/ul (4.8-10.8)
[2022-11-19 16:30] LABS: Alanine Aminotransferase 17 U/L (7-52); Albumin Globulin Ratio 1.8 (0.9-2); Albumin Level 4.8 gm/dl (3.4-5.0); Alkaline Phosphatase 71 U/L (34-104); Anion Gap 7 (3-11); Aspartate Aminotransferase 19 U/L (13-39); BUN Creatinine Ratio 19.7 (10-20); Bilirubin,Total 0.4 mg/dl (0.2-1.0); Blood Urea Nitrogen 15 mg/dl (6-23); Calcium 9.7 mg/dl (8.6-10.3); Carbon Dioxide 26 mmol/L (21-32); Chloride 108 mmol/L (98-107); Creatinine Clr Calc Pharmacy 70.2 ml/min; Est GFR (African American) 92.8 ml/min; Globulin 2.6 gm/dl (2.5-4.0); Glucose 123 mg/dl (70-99(Fasting)); Potassium 3.8 mmol/L (3.5-5.1); Sodium 141 mmol/L (136-145); Total Protein 7.4 gm/dl (6.0-8.3)
[2022-11-19 16:36] LABS: Troponin I High Sensitivity < 2.3 pg/ml (0-14)
--- NOTE | 2022-11-19 16:44 | XRay Report ---
XR chest 1V portable CLINICAL HISTORY: Chest pain, nonspecific COMPARISON STUDY: Chest radiograph and chest CT May 02, 2020. FINDINGS: Lung volumes are normal. Lungs are clear. There is no pneumothorax or pleural effusion. Car diac size is normal. Mediastinal contours are normal. There is no evidence for pulmonary edema. IMPRESSION: No acute cardiopulmonary findings. ACT 112: Negative or not required by law. Electronically signed by: Virgil Rodríguez M.D. 11/19/2022 4:43 PM
[2022-11-19 16:46] LABS: Partial Thromboplastin Time 27.3 Seconds (21.0-31.0); Prothrombin Time 10.5 Seconds (9.0-12.0)
[2022-11-19] MEDS ORDERED: LABETALOL HCL IV 5 MG/ML 20ML IV STA (16:49)
--- NOTE | 2022-11-19 16:51 | Emergency Department Note ---
Impression & Plan Chest pain ADMIT ED Provider Note HPI: The patient is a 71-year-old female with history of hypertension, presents emergency department with chief complaint of anterior chest discomfort that radiates to her back. Patient states her symptoms began at about 3 AM. Patient states that they persisted throughout the morning and therefore she came to the ED for evaluation. On arrival here to the ED the patient was noted to be hypertensive at 204/92, she was given sublingual nitroglycerin as well as aspirin prior to my initial evaluation. Patient states when I am speaking to her that her pain has greatly subsided, she denies any current dyspnea, rates her chest pain at 1 out of 10. Aside from patient's hypertension vital signs are within normal limits on arrival. Patient is saturating well on room air and appears to be in no acute physical distress on my initial assessment ROS: - Per HPI Differential Diagnosis: Aortic dissection, pulmonary embolism, gastritis with esophageal spasm, acute coronary syndrome, pneumothorax, amongst other potential pathologies. *Outpatient medications and allergy history reviewed. *Pertinent external medical records reviewed. PE: General: Alert HEENT: Normocephalic, trachea midline Eyes: Extraocular eye movement is intact, no scleral erythema Pulmonary: Clear to auscultation bilaterally, no wheezing Cardio: Regular rate and rhythm GI: Abdomen is soft to palpation, no guarding or rigidity : No suprapubic tenderness MSK: No evidence of trauma or malformation of the extremities, no edema Skin: No evidence of rash Neuro: Alert, no focal deficits Psychiatric: Cooperative gambling monitor: (As interpreted by myself): - An order was placed for continuous cardiac monitoring - Patient was noted to be in sinus rhythm with a rate of 75 EKG: (As interpreted by myself): Rate: 74 Rhythm: Normal sinus rhythm Intervals: Within normal limits ST changes: No ST elevation Time: 1539 Interventions provided in ED: -IV labetalol, IV hydralazine, aspirin Medical Decision Making: Shortly after the patient arrived IV was established and lab work obtained, patient was maintained on gambling monitor. EKG reviewed by myself shows sinus rhythm without any acute ischemic changes, there is no leukocytosis, hemoglobin is normal, platelet count is within normal limits, CMP does not show any critical abnormalities, troponin is negative. Given the patient's complaint of chest pain radiating to the back in addition to hypertension on presentation, CT angiography of the chest was obtained that does not show any evidence of aortic dissection. Abdominal exam is reassuring, patient does not have any right upper quadrant tenderness, she does complain of some mild epigastric tenderness, lipase is normal, low suspicion for acute pancreatitis. In general abdominal exam is reassuring therefore CT imaging of the abdomen was not ordered. Patient was ordered a GI cocktail as she did have epigastric pain at times and I suspect there may be an element of gastritis. Despite this on my reassessment patient states that her chest pain returned, her blood pressure is elevated again greater than 200 systolic and she was ordered a dose of IV hydralazine. Blood pressure then did improve into the 170s systolic. She otherwise appears well and is saturating well on room air on my reassessment. Delta troponin was obtained and is negative. Given the patient's hypertension and recurrent chest discomfort I did discuss case with the admitting hospitalist for [facility] (Dr. Euceda) and the patient was placed for admission in stable condition. Patient was in agreement to the above plan as was her at the bedside. Consultants: [facility] hospitalist, Dr. Euceda Disposition discussion held by myself with: Patient Diagnosis: 1. Chest pain, acute 2. Hypertensive urgency, acute Disposition: Admission Tae Vargas DO Emergency Medicine Past Med/Surg History Medical History A-fib Acute electrocardiogram changes Chest pain Heart palpitations Hypertension Hypothyroidism Mitral valve prolapse Surgical History History of cataract surgery Family History Other Cancer Hypertension Social History Smoking Status: Never smoker Second Hand Exposure: No; Do You Dip or Chew Tobacco: No; Tobacco Cessation Education Requested by Patient: No Hx Alcohol Use: No Hx Substance Use: No Preferred Language: Armenian Communication Ability: Effective Poll Watcher Required: No Beliefs That Will Affect Care: None Current Living Situation: Spouse Other Information That Helps Us Care for You: No Feels Safe at Home: Yes Safety Concerns: Feels Safe At This Time Assistive Devices: Glasses Allergies Allergies Allergy/AdvReac Type Severity Reaction Status Date / Time codeine AdvReac Intermediate Tachycardia Verified 11/19/22 17:32 lisinopril AdvReac Intermediate Cough Verified 11/19/22 17:32 adhesive AdvReac Mild Redness of Verified 11/19/22 17:32 Skin Home Meds Home Medications Medication Instructions Recorded Confirmed levothyroxine 25 mcg tablet 25 mcg PO QAM 02/11/18 11/19/22 losartan 25 mg tablet 25 mg PO DAILY 05/02/20 11/19/22 aspirin 81 mg tablet,delayed 162 mg PO DAILY PRN NEEDED PER 10/19/22 11/19/22 release PT. folic acid 1 mg tablet 1 mg PO DAILY 10/19/22 11/19/22 glucosamine HCl 1,500 mg tablet 1,500 mg PO DAILY 10/19/22 11/19/22 omega-3 fatty acids 1,000 mg 1,000 mg PO BID 10/19/22 11/19/22 capsule cholecalciferol (vitamin D3) 125 125 mcg PO DAILY 11/19/22 11/19/22 mcg (5,000 unit) tablet (Vitamin D3) Previous Rx's Medication Instructions Recorded metoprolol tartrate 50 mg tablet 50 mg PO BID #60 tabs 11/24/19 Results & Data (ED) Vital Signs Vital Signs - 24 hr 11/19/22 15:30 11/19/22 16:46 11/19/22 17:02 Temperature 36.6 C Temperature Source Temporal Artery Scan Pulse Rate 80 69 Pulse Rate [Right] Pulse Rate from SpO2 Sensor Respiratory Rate 16 Respiratory Depth Normal Blood Pressure 204/92 H Blood Pressure [Left Arm] Blood Pressure Mean 129 Blood Pressure Mean [Left Arm] Pulse Oximetry 98 98 Oxygen Delivery Method Room Air Room Air Oxygen Flow Rate 0 Sepsis Recent Fever Within 48 Hours No Sepsis New/Unexplained Change in Mental Status No Sepsis Action Taken by Nursing No Action Required 11/19/22 17:18 11/19/22 17:19 11/19/22 16:42 Temperature Temperature Source Pulse Rate 90 84 Pulse Rate [Right] 91 H Pulse Rate from SpO2 Sensor 82 Respiratory Rate 20 Respiratory Depth Blood Pressure 210/94 H Blood Pressure [Left Arm] 210/94 H Blood Pressure Mean Blood Pressure Mean [Left Arm] 132 Pulse Oximetry 97 Oxygen Delivery Method Oxygen Flow Rate Sepsis Recent Fever Within 48 Hours Sepsis New/Unexplained Change in Mental Status Sepsis Action Taken by Nursing 11/19/22 17:09 11/19/22 17:13 11/19/22 17:13 Temperature Temperature Source Pulse Rate 118 H 86 Pulse Rate [Right] Pulse Rate from SpO2 Sensor 91 H 87 Respiratory Rate 19 26 H Respiratory Depth Blood Pressure 226/93 H Blood Pressure [Left Arm] Blood Pressure Mean 167 Blood Pressure Mean [Left Arm] Pulse Oximetry 96 97 Oxygen Delivery Method Oxygen Flow Rate Sepsis Recent Fever Within 48 Hours Sepsis New/Unexplained Change in Mental Status Sepsis Action Taken by Nursing 11/19/22 17:16 11/19/22 17:16 11/19/22 17:19 Temperature Temperature Source Pulse Rate 89 Pulse Rate [Right] Pulse Rate from SpO2 Sensor 89 Respiratory Rate 21 Respiratory Depth Blood Pressure 217/91 H 210/94 H Blood Pressure [Left Arm] Blood Pressure Mean 127 129 Blood Pressure Mean [Left Arm] Pulse Oximetry 97 Oxygen Delivery Method Oxygen Flow Rate Sepsis Recent Fever Within 48 Hours Sepsis New/Unexplained Change in Mental Status Sepsis Action Taken by Nursing 11/19/22 17:19 11/19/22 17:29 11/19/22 17:29 Temperature Temperature Source Pulse Rate 91 H 83 Pulse Rate [Right] Pulse Rate from SpO2 Sensor 91 H 82 Respiratory Rate 20 24 Respiratory Depth Blood Pressure 194/77 H Blood Pressure [Left Arm] Blood Pressure Mean 110 Blood Pressure Mean [Left Arm] Pulse Oximetry 97 96 Oxygen Delivery Method Oxygen Flow Rate Sepsis Recent Fever Within 48 Hours Sepsis New/Unexplained Change in Mental Status Sepsis Action Taken by Nursing 11/19/22 17:30 11/19/22 17:31 11/19/22 17:31 Temperature Temperature Source Pulse Rate 75 79 Pulse Rate [Right] Pulse Rate from SpO2 Sensor 76 79 Respiratory Rate 20 19 Respiratory Depth Blood Pressure 173/91 H Blood Pressure [Left Arm] Blood Pressure Mean 96 Blood Pressure Mean [Left Arm] Pulse Oximetry 95 95 Oxygen Delivery Method Oxygen Flow Rate Sepsis Recent Fever Within 48 Hours Sepsis New/Unexplained Change in Mental Status Sepsis Action Taken by Nursing 11/19/22 17:58 11/19/22 17:58 11/19/22 18:00 Temperature Temperature Source Pulse Rate 70 Pulse Rate [Right] Pulse Rate from SpO2 Sensor 70 Respiratory Rate 17 Respiratory Depth Blood Pressure 166/70 H 175/69 H Blood Pressure [Left Arm] Blood Pressure Mean 98 129 Blood Pressure Mean [Left Arm] Pulse Oximetry 95 Oxygen Delivery Method Oxygen Flow Rate Sepsis Recent Fever Within 48 Hours Sepsis New/Unexplained Change in Mental Status Sepsis Action Taken by Nursing 11/19/22 18:00 11/19/22 18:15 11/19/22 18:15 Temperature Temperature Source Pulse Rate 68 70 Pulse Rate [Right] Pulse Rate from SpO2 Sensor 68 70 Respiratory Rate 23 20 Respiratory Depth Blood Pressure 151/62 H Blood Pressure [Left Arm] Blood Pressure Mean 99 Blood Pressure Mean [Left Arm] Pulse Oximetry 98 96 Oxygen Delivery Method Oxygen Flow Rate Sepsis Recent Fever Within 48 Hours Sepsis New/Unexplained Change in Mental Status Sepsis Action Taken by Nursing 11/19/22 18:30 11/19/22 18:30 11/19/22 18:46 Temperature Temperature Source Pulse Rate 67 68 Pulse Rate [Right] Pulse Rate from SpO2 Sensor 68 68 Respiratory Rate 18 23 Respiratory Depth Blood Pressure 182/87 H Blood Pressure [Left Arm] Blood Pressure Mean 123 Blood Pressure Mean [Left Arm] Pulse Oximetry 97 96 Oxygen Delivery Method Oxygen Flow Rate Sepsis Recent Fever Within 48 Hours Sepsis New/Unexplained Change in Mental Status Sepsis Action Taken by Nursing 11/19/22 19:00 11/19/22 19:01 11/19/22 19:15 Temperature Temperature Source Pulse Rate 67 70 68 Pulse Rate [Right] Pulse Rate from SpO2 Sensor 66 70 68 Respiratory Rate 19 20 20 Respiratory Depth Blood Pressure Blood Pressure [Left Arm] Blood Pressure Mean Blood Pressure Mean [Left Arm] Pulse Oximetry 98 96 98 Oxygen Delivery Method Oxygen Flow Rate Sepsis Recent Fever Within 48 Hours Sepsis New/Unexplained Change in Mental Status Sepsis Action Taken by Nursing 11/19/22 19:15 11/19/22 19:30 11/19/22 19:31 Temperature Temperature Source Pulse Rate 66 69 Pulse Rate [Right] Pulse Rate from SpO2 Sensor 67 69 Respiratory Rate 26 H 20 Respiratory Depth Blood Pressure 210/86 H Blood Pressure [Left Arm] Blood Pressure Mean 153 Blood Pressure Mean [Left Arm] Pulse Oximetry 98 96 Oxygen Delivery Method Oxygen Flow Rate Sepsis Recent Fever Within 48 Hours Sepsis New/Unexplained Change in Mental Status Sepsis Action Taken by Nursing 11/19/22 19:31 11/19/22 19:46 Temperature Temperature Source Pulse Rate 71 Pulse Rate [Right] Pulse Rate from SpO2 Sensor 71 Respiratory Rate 19 Respiratory Depth Blood Pressure Blood Pressure [Left Arm] Blood Pressure Mean 140 Blood Pressure Mean [Left Arm] Pulse Oximetry 97 Oxygen Delivery Method Oxygen Flow Rate Sepsis Recent Fever Within 48 Hours Sepsis New/Unexplained Change in Mental Status Sepsis Action Taken by Nursing Laboratory Data 11/19/22 15:53 11/19/22 15:53 Lab Results 11/19/22 11/19/22 11/19/22 Range/Units 15:53 15:53 15:53 WBC 5.44 (4.8-10.8) K/ul RBC 4.92 (4.20-5.40) M/uL Hgb 14.8 (12.0-16.0) g/dl Hct 44.1 (37.0-47.0) % MCV 89.6 (80.0-100.0) fL MCH 30.1 (25.0-34.0) pg MCHC 33.6 (32.0-36.0) g/dL RDW Std Deviation 43.8 (36.4-46.3) fL RDW Coeff of Che 13.4 (11.5-14.5) % Plt Count 178 (130-400) K/uL MPV 10.2 (9.4-12.4) fL Immature Gran % (Auto) 0.2 % Neut % (Auto) 59.8 % Lymph % (Auto) 32.2 % Stan[place] % (Auto) 7.0 % Eos % (Auto) 0.6 % Baso % (Auto) 0.2 % Neut # (Auto) 3.26 (1.40-6.50) K/uL Lymph # (Auto) 1.75 (1.2-3.4) K/uL Stanly # (Auto) 0.38 (0.11-0.59) K/uL Eos # (Auto) 0.03 (0-0.50) K/uL Baso # (Auto) 0.01 (0-0.2) K/uL Immature Gran # (Auto) 0.01 (0.01-0.20) K/uL PT 10.5 (9.0-12.0) Seconds INR 1.0 (0.9-1.1) APTT 27.3 (21.0-31.0) Seconds PTT Ratio 1.0 Sodium 141 (136-145) mmol/L Potassium 3.8 (3.5-5.1) mmol/L Chloride 108 H (98-107) mmol/L Carbon Dioxide 26 (21-32) mmol/L Anion Gap 7 (3-11) BUN 15 (6-23) mg/dl Creatinine 0.76 (0.6-1.2) mg/dl Est Cr Clr Drug Dosing 70.2 ml/min Est GFR ( Amer) 92.8 ml/min Est GFR (Non-Af Amer) 80.0 ml/min BUN/Creatinine Ratio 19.7 (10-20) Glucose 123 H (70-99(Fasting)) mg/dl Calcium 9.7 (8.6-10.3) mg/dl Total Bilirubin 0.4 (0.2-1.0) mg/dl AST 19 (13-39) U/L ALT 17 (7-52) U/L Alkaline Phosphatase 71 (34-104) U/L Troponin I High Sens < 2.3 (0-14) pg/ml Total Protein 7.4 (6.0-8.3) gm/dl Albumin 4.8 (3.4-5.0) gm/dl Globulin 2.6 (2.5-4.0) gm/dl Albumin/Globulin Ratio 1.8 (0.9-2) Lipase (11-82) U/L SARS-CoV-2, RNA, NAAT (NEGATIVE) 11/19/22 11/19/22 Range/Units 15:54 18:00 WBC (4.8-10.8) K/ul RBC (4.20-5.40) M/uL Hgb (12.0-16.0) g/dl Hct (37.0-47.0) % MCV (80.0-100.0) fL MCH (25.0-34.0) pg MCHC (32.0-36.0) g/dL RDW Std Deviation (36.4-46.3) fL RDW Coeff of Che (11.5-14.5) % Plt Count (130-400) K/uL MPV (9.4-12.4) fL Immature Gran % (Auto) % Neut % (Auto) % Lymph % (Auto) % Stanly % (Auto) % Eos % (Auto) % Baso % (Auto) % Neut # (Auto) (1.40-6.50) K/uL Lymph # (Auto) (1.2-3.4) K/uL Stanly # (Auto) (0.11-0.59) K/uL Eos # (Auto) (0-0.50) K/uL Baso # (Auto) (0-0.2) K/uL Immature Gran # (Auto) (0.01-0.20) K/uL PT (9.0-12.0) Seconds INR (0.9-1.1) APTT (21.0-31.0) Seconds PTT Ratio Sodium (136-145) mmol/L Potassium (3.5-5.1) mmol/L Chloride (98-107) mmol/L Carbon Dioxide (21-32) mmol/L Anion Gap (3-11) BUN (6-23) mg/dl Creatinine (0.6-1.2) mg/dl Est Cr Clr Drug Dosing ml/min Est GFR ( Amer) ml/min Est GFR (Non-Af Amer) ml/min BUN/Creatinine Ratio (10-20) Glucose (70-99(Fasting)) mg/dl Calcium (8.6-10.3) mg/dl Total Bilirubin (0.2-1.0) mg/dl AST (13-39) U/L ALT (7-52) U/L Alkaline Phosphatase (34-104) U/L Troponin I High Sens 3.3 (0-14) pg/ml Total Protein (6.0-8.3) gm/dl Albumin (3.4-5.0) gm/dl Globulin (2.5-4.0) gm/dl Albumin/Globulin Ratio (0.9-2) Lipase 23 (11-82) U/L SARS-CoV-2, RNA, NAAT NEGATIVE (NEGATIVE) Administered Medications Enoxaparin Sodium (Enoxaparin Inj 40 Mg/0.4 Ml Syr) 40 mg SQ Q24H [facility] Stop: 12/19/22 19:59 Last Admin: 11/19/22 21:52 Dose: 40 mg Documented By: DIRECTOR OPERATIONS Metoprolol Tartrate (Metoprolol Tartrate 50 Mg Tab) 50 mg PO BID PEE Stop: 12/19/22 21:28 Last Admin: 11/19/22 21:51 Dose: 50 mg Documented By: DIRECTOR OPERATIONS Nitroglycerin (Nitroglycerin Sl 0.4 Mg/Tab Tab) 0.4 mg SL Q5M PRN PRN Reason: Chest Pain Stop: 12/19/22 15:32 Last Admin: 11/19/22 21:47 Dose: 0.4 mg Documented By: DIRECTOR OPERATIONS Discontinued Medications Al Hydrox/Mg Hydrox/Simethicone (Aluminum/Magnesium Susp 30 Ml Udc) 15 ml PO NOW STA Stop: 11/19/22 19:30 Last Admin: 11/19/22 20:51 Dose: 15 ml Documented By: TETE Aspirin (Aspirin Chew 324 Mg) 324 mg PO NOW STA Stop: 11/19/22 15:34 Last Admin: 11/19/22 15:55 Dose: 324 mg Documented By: PEYMAN Hydralazine HCl (Hydralazine Hcl 20 Mg/Ml Vial) 5 mg IV NOW ONE Stop: 11/19/22 19:30 Last Admin: 11/19/22 20:49 Dose: 5 mg Documented By: TETE Ioversol (Optiray 320 125ml) 119 ml IV ONCE ONE Stop: 11/19/22 17:05 Last Admin: 11/19/22 17:05 Dose: 119 ml Documented By: FIDE Labetalol HCl (Labetalol Hcl Iv 5 Mg/Ml 20ml) 10 mg IV NOW STA Stop: 11/19/22 16:50 Last Admin: 11/19/22 17:19 Dose: 10 mg Documented By: AM Co-signed By: ARELIS Losartan Potassium (Losartan Potassium 25 Mg Tab) 25 mg PO NOW STA Stop: 11/19/22 21:55 Last Admin: 11/19/22 22:18 Dose: 25 mg Documented By: DIRECTOR OPERATIONS Ondansetron HCl (Ondansetron Inj 2 Mg/Ml 2 Ml Vial) 4 mg IV NOW STA Stop: 11/19/22 15:34 Last Admin: 11/19/22 15:55 Dose: 4 mg Documented By: PEYMAN Imaging Data Radiologist's Impression: Chest X-Ray 11/19/22 15:33 XR chest 1V portable CLINICAL HISTORY: Chest pain, nonspecific COMPARISON STUDY: Chest radiograph and chest CT May 02, 2020. FINDINGS: Lung volumes are normal. Lungs are clear. There is no pneumothorax or pleural effusion. Cardiac size is normal. Mediastinal contours are normal. There is no evidence for pulmonary edema. IMPRESSION: No acute cardiopulmonary findings. ACT 112: Negative or not required by law. Electronically signed by: Virgil Rodríguez M.D. 11/19/2022 4:43 PM Chest CTA 11/19/22 16:48 CT ANGIOGRAPHY OF THE CHEST DISSECTION PROTOCOL CLINICAL HISTORY: Chest pain radiating to back, HTN. Evaluate for dissection. COMPARISON STUDY: Chest CT May 02, 2020 chest radiograph performed earlier today. TECHNIQUE: Before and following the IV administration of 119 mL of Optiray, helical axial images of the chest were obtained. Maximal intensity projections and sagittal and coronal reformats were viewed on an independent 3D workstation. IV contrast was administered without complication. Automated exposure control was utilized for the study. A dose lowering technique was utilized adhering to the principles of ALARA. CT DOSE: 1434.67 mGy.cm FINDINGS: Caliber of the thoracic aorta is normal. There is no intramural hematoma or thoracic aortic dissection. There is mild calcified plaque along the aortic arch. There is no pericardial effusion. No pulmonary emboli are identified. No thoracic lymphadenopathy is present. There is no pneumothorax or pleural effusion. No consolidation to suggest pneumonia. No acute fractures with in the visualized bony thorax are present. The gallbladder is surgically absent. IMPRESSION: 1. No thoracic aortic dissection. 2. No acute intrathoracic findings. ACT 112: Negative or not required by law. Electronically signed by: Virgil Rodríguez M.D. 11/19/2022 5:27 PM Discharge Plan Visit Data Chief Complaint: Chest Pain Stated Complaint: CHEST PAIN, SICK TO STOMACH, BACK PAIN ED Provider: Tae Vargas Discharge Problem: Chest pain Patient Disposition: Admitted As Inpatient Discharge Instructions Interventions: ED Discharge Assessment Last Done: 11/19/22 20:45
[2022-11-19] MEDS ORDERED: OPTIRAY 320 125ml IV ONE (17:04)
--- NOTE | 2022-11-19 17:28 | CT Scan Report ---
CT ANGIOGRAPHY OF THE CHEST DISSECTION PROTOCOL CLINICAL HISTORY: Chest pain radiating to back, HTN. Evaluate for dissection. COMPARISON STUDY: Chest CT May 02, 2020 chest radiograph performed earlier today. TECHNIQUE: Before and following the IV administration of 119 mL of Optiray, helical axial images of t he chest were obtained. Maximal intensity projections and sagittal and coronal reformats were viewed on an independent 3D workstation. IV contrast was administered without complication. Automated exp osure control was utilized for the study. A dose lowering technique was utilized adhering to the [facility] of [place]. CT DOSE: 1434.67 mGy.cm FINDINGS: Caliber of the thoracic aorta is normal. There is no intramural hematoma or thoracic aorti c dissection. There is mild calcified plaque along the aortic arch. There is no pericardial effusion. No pulmonary emboli are identified. No thoracic lymphadenopathy is present. There is no pneumothorax or pleural effusion. No consolidation to suggest pneumonia. No acute fractures within the visualized bony thorax are present. The gallbladder is surgically absent. IMPRESSION: 1. No thoracic aortic dissection. 2. No acute intrathoracic findings. ACT 112: Negative or not required by law. Electronically signed by: Virgil Rodríguez M.D. 11/19/2022 5:27 PM
[2022-11-19 18:40] LABS: Troponin I High Sensitivity 3.3 pg/ml (0-14)
[2022-11-19] MEDS ORDERED: ALUMINUM/MAGNESIUM SUSP 30 ML UDC PO STA (19:29)
[2022-11-19] MEDS ORDERED: hydrALAZINE HCL 20 MG/ML VIAL IV ONE (19:29)
[2022-11-19] MEDS ORDERED: MoRPHine SULFATE 2 MG/ML CARP IV PRN (19:48)
[2022-11-19] MEDS ORDERED: MAGNESIUM HYDROXIDE SUSP 30 ML UDC PO PRN (19:48)
[2022-11-19] MEDS ORDERED: ONDANSETRON INJ 2 MG/ML 2 ML VIAL IV PRN (19:48)
[2022-11-19] MEDS ORDERED: ACETAMINOPHEN 325 MG TAB PO PRN (19:48)
[2022-11-19] MEDS ORDERED: ENOXAPARIN INJ 40 MG/0.4 ML SYR SQ SCH (20:00)
[2022-11-19] MEDS ORDERED: hydrALAZINE HCL 20 MG/ML VIAL IV PRN ×3 (20:19→21:29)
--- NOTE | 2022-11-19 20:24 | History & Physical Report ---
Date of Service November 19, 2022 Assessment & Plan (1) Chest pain, exertional: Plan: Observation vitals as protocol serial trops cards consult recent echo as outpatient. (2) Uncontrolled hypertension: Plan: Iv hydralazine q6 continue losartan and metoprolol if blood pressure does not drop will consider adding labetalol as well (3) Peripheral edema: (4) Hypothyroidism: Plan: continue home meds (5) Mitral valve prolapse: Plan: chronic (6) A-fib: Plan: rate controlled at this time Plan Patient is been admitted to tele unit will consider adding labetalol if blood pressure does not drop. will continue to moniter Dvt prophylaxis: continue lovenox History of Present Illness Chief Complaint: Chest Pain for the past 12 hours Primary Care Provider: Zain Oliveros MD 71 year old patient with history of hypertension , hypothyroidism, mitral valve prolapse, hx of afib recently seen by cardiology in their office presented to the hospital with uncontrolled blood pressure and mid sternal chest pain radiating to the back. intial blood pressure showed systolic in the 200s . patient was given ntg and a dose of hydralazinel. IN view of the mid sternal chest pain a ct angio was done to rule out aortic dissection . Patients initial trops were negative In view of the high uncontrolled bp it was decided to observe the patient for 24 hours at time of interview it was noted that patient had chest pain wiht radiation to left arm. initial ekg was negative or st-t changes . no shortness of breath Allergies Allergy/AdvReac Type Severity Reaction Status Date / Time codeine AdvReac Intermediate Tachycardia Verified 11/19/22 17:32 lisinopril AdvReac Intermediate Cough Verified 11/19/22 17:32 adhesive AdvReac Mild Redness of Verified 11/19/22 17:32 Skin Home Medications Medication Instructions Recorded Confirmed Type levothyroxine 25 mcg tablet 25 mcg PO QAM 02/11/18 11/19/22 History metoprolol tartrate 50 mg tablet 50 mg PO BID #60 tabs 11/24/19 11/19/22 Rx losartan 25 mg tablet 25 mg PO DAILY 05/02/20 11/19/22 History aspirin 81 mg tablet,delayed 162 mg PO DAILY PRN NEEDED PER 10/19/22 11/19/22 History release PT. folic acid 1 mg tablet 1 mg PO DAILY 10/19/22 11/19/22 History glucosamine HCl 1,500 mg tablet 1,500 mg PO DAILY 10/19/22 11/19/22 History omega-3 fatty acids 1,000 mg 1,000 mg PO BID 10/19/22 11/19/22 History capsule cholecalciferol (vitamin D3) 125 125 mcg PO DAILY 11/19/22 11/19/22 History mcg (5,000 unit) tablet (Vitamin D3) Past Med/Surg History Medical History A-fib Acute electrocardiogram changes Chest pain Heart palpitations Hypertension Hypothyroidism Mitral valve prolapse Surgical History History of cataract surgery Family History Other Cancer Hypertension Social History Smoking Status: Never smoker Hx Alcohol Use: No Hx Substance Use: No Preferred Language: Greenlandic Communication Ability: Effective Undercutter Operator Required: No Beliefs That Will Affect Care: None Current Living Situation: Spouse Feels Safe at Home: Yes Assistive Devices: None Review of Systems Review of Systems: Reviewed all systems as noted in H/P , rest reviewed as negative Physical Exam Physical Exam: HEENT:No JVD , Normocephalic , atraumatic CV: S1/S2+ , systolic murmur+ Resp: Air entry present bilaterally.no crackles, no wheeze . GI: Abdomen soft non tender . Musculoskeletal: examined for joint tenderness. Skin: no rashes Psych: Normal affect Neuro: Patient is awake alert not in distress , No focal neuro deficits noted Ext: edema+ . Results & Data Results & Data Vital Signs (Past 12 Hours) Vital Signs Temp Pulse Pulse Resp BP BP Pulse Ox 11/19/22 20:02 67 19 97 11/19/22 20:00 72 19 97 11/19/22 19:46 71 19 97 11/19/22 19:31 69 20 96 11/19/22 19:30 66 26 H 98 11/19/22 19:15 210/86 H 11/19/22 19:15 68 20 98 11/19/22 19:01 70 20 96 11/19/22 19:00 67 19 98 11/19/22 18:46 68 23 96 11/19/22 18:30 67 18 97 11/19/22 18:30 182/87 H 11/19/22 18:15 151/62 H 11/19/22 18:15 70 20 96 11/19/22 18:00 68 23 98 11/19/22 18:00 175/69 H 11/19/22 17:58 166/70 H 11/19/22 17:58 70 17 95 11/19/22 17:31 79 19 95 11/19/22 17:31 173/91 H 11/19/22 17:30 75 20 95 11/19/22 17:29 194/77 H 11/19/22 17:29 83 24 96 11/19/22 17:19 91 H 20 97 11/19/22 17:19 210/94 H 11/19/22 17:16 217/91 H 11/19/22 17:16 89 21 97 11/19/22 17:13 86 26 H 97 11/19/22 17:13 226/93 H 11/19/22 17:09 118 H 19 96 11/19/22 16:42 84 20 97 11/19/22 17:19 90 210/94 H 11/19/22 17:18 91 H 210/94 H 11/19/22 17:02 69 11/19/22 16:46 98 11/19/22 15:30 36.6 C 80 16 204/92 H 98 O2 Del Method O2 Flow Rate 11/19/22 20:02 11/19/22 20:00 11/19/22 19:46 11/19/22 19:31 11/19/22 19:30 11/19/22 19:15 11/19/22 19:15 11/19/22 19:01 11/19/22 19:00 11/19/22 18:46 11/19/22 18:30 11/19/22 18:30 11/19/22 18:15 11/19/22 18:15 11/19/22 18:00 11/19/22 18:00 11/19/22 17:58 11/19/22 17:58 11/19/22 17:31 11/19/22 17:31 11/19/22 17:30 11/19/22 17:29 11/19/22 17:29 11/19/22 17:19 11/19/22 17:19 11/19/22 17:16 11/19/22 17:16 11/19/22 17:13 11/19/22 17:13 11/19/22 17:09 11/19/22 16:42 11/19/22 17:19 11/19/22 17:18 11/19/22 17:02 11/19/22 16:46 Room Air 0 11/19/22 15:30 Room Air Laboratory Results Laboratory Results WBC 5.44 K/ul (4.8-10.8) 11/19/22 15:53 RBC 4.92 M/uL (4.20-5.40) 11/19/22 15:53 Hgb 14.8 g/dl (12.0-16.0) 11/19/22 15:53 Hct 44.1 % (37.0-47.0) 11/19/22 15:53 MCV 89.6 fL (80.0-100.0) 11/19/22 15:53 MCH 30.1 pg (25.0-34.0) 11/19/22 15:53 MCHC 33.6 g/dL (32.0-36.0) 11/19/22 15:53 RDW Std Deviation 43.8 fL (36.4-46.3) 11/19/22 15:53 RDW Coeff of Che 13.4 % (11.5-14.5) 11/19/22 15:53 Plt Count 178 K/uL (130-400) 11/19/22 15:53 MPV 10.2 fL (9.4-12.4) 11/19/22 15:53 Immature Gran % (Auto) 0.2 % 11/19/22 15:53 Neut % (Auto) 59.8 % 11/19/22 15:53 Lymph % (Auto) 32.2 % 11/19/22 15:53 [place] % (Auto) 7.0 % 11/19/22 15:53 Eos % (Auto) 0.6 % 11/19/22 15:53 Baso % (Auto) 0.2 % 11/19/22 15:53 Neut # (Auto) 3.26 K/uL (1.40-6.50) 11/19/22 15:53 Lymph # (Auto) 1.75 K/uL (1.2-3.4) 11/19/22 15:53 [place] # (Auto) 0.38 K/uL (0.11-0.59) 11/19/22 15:53 Eos # (Auto) 0.03 K/uL (0-0.50) 11/19/22 15:53 Baso # (Auto) 0.01 K/uL (0-0.2) 11/19/22 15:53 Immature Gran # (Auto) 0.01 K/uL (0.01-0.20) 11/19/22 15:53 PT 10.5 Seconds (9.0-12.0) 11/19/22 15:53 INR 1.0 (0.9-1.1) 11/19/22 15:53 APTT 27.3 Seconds (21.0-31.0) 11/19/22 15:53 PTT Ratio 1.0 11/19/22 15:53 Sodium 141 mmol/L (136-145) 11/19/22 15:53 Potassium 3.8 mmol/L (3.5-5.1) 11/19/22 15:53 Chloride 108 mmol/L (98-107) H 11/19/22 15:53 Carbon Dioxide 26 mmol/L (21-32) 11/19/22 15:53 Anion Gap 7 (3-11) 11/19/22 15:53 BUN 15 mg/dl (6-23) 11/19/22 15:53 Creatinine 0.76 mg/dl (0.6-1.2) 11/19/22 15:53 Est Cr Clr Drug Dosing 70.2 ml/min 11/19/22 15:53 Est GFR ( Amer) 92.8 ml/min 11/19/22 15:53 Est GFR (Non-Af Amer) 80.0 ml/min 11/19/22 15:53 BUN/Creatinine Ratio 19.7 (10-20) 11/19/22 15:53 Glucose 123 mg/dl (70-99(Fasting)) H 11/19/22 15:53 Calcium 9.7 mg/dl (8.6-10.3) 11/19/22 15:53 Total Bilirubin 0.4 mg/dl (0.2-1.0) 11/19/22 15:53 AST 19 U/L (13-39) 11/19/22 15:53 ALT 17 U/L (7-52) 11/19/22 15:53 Alkaline Phosphatase 71 U/L (34-104) 11/19/22 15:53 Troponin I High Sens 3.3 pg/ml (0-14) 11/19/22 18:00 Total Protein 7.4 gm/dl (6.0-8.3) 11/19/22 15:53 Albumin 4.8 gm/dl (3.4-5.0) 11/19/22 15:53 Globulin 2.6 gm/dl (2.5-4.0) 11/19/22 15:53 Albumin/Globulin Ratio 1.8 (0.9-2) 11/19/22 15:53 Lipase 23 U/L (11-82) 11/19/22 18:00 SARS-CoV-2, RNA, NAAT NEGATIVE (NEGATIVE) 11/19/22 15:54 Impressions Chest X-Ray 11/19/22 15:33 XR chest 1V portable CLINICAL HISTORY: Chest pain, nonspecific COMPARISON STUDY: Chest radiograph and chest CT May 02, 2020. FINDINGS: Lung volumes are normal. Lungs are clear. There is no pneumothorax or pleural effusion. Cardiac size is normal. Mediastinal contours are normal. There is no evidence for pulmonary edema. IMPRESSION: No acute cardiopulmonary findings. ACT 112: Negative or not required by law. Electronically signed by: Virgil Rodríguez M.D. 11/19/2022 4:43 PM Chest CTA 11/19/22 16:48 CT ANGIOGRAPHY OF THE CHEST DISSECTION PROTOCOL CLINICAL HISTORY: Chest pain radiating to back, HTN. Evaluate for dissection. COMPARISON STUDY: Chest CT May 02, 2020 chest radiograph performed earlier today. TECHNIQUE: Before and following the IV administration of 119 mL of Optiray, helical axial images of the chest were obtained. Maximal intensity projections and sagittal and coronal reformats were viewed on an independent 3D workstation. IV contrast was administered without complication. Automated exposure control was utilized for the study. A dose lowering technique was utilized adhering to the principles of ALARA. CT DOSE: 1434.67 mGy.cm FINDINGS: Caliber of the thoracic aorta is normal. There is no intramural hematoma or thoracic aortic dissection. There is mild calcified plaque along the aortic arch. There is no pericardial effusion. No pulmonary emboli are identified. No thoracic lymphadenopathy is present. There is no pneumothorax or pleural effusion. No consolidation to suggest pneumonia. No acute fractures within the visualized bony thorax are present. The gallbladder is surgically absent. IMPRESSION: 1. No thoracic aortic dissection. 2. No acute intrathoracic findings. ACT 112: Negative or not required by law. Electronically signed by: Virgil Rodríguez M.D. 11/19/2022 5:27 PM Medications Administered Home Medications Medication Instructions Recorded Confirmed levothyroxine 25 mcg tablet 25 mcg PO QAM 02/11/18 11/19/22 losartan 25 mg tablet 25 mg PO DAILY 05/02/20 11/19/22 aspirin 81 mg tablet,delayed 162 mg PO DAILY PRN NEEDED PER 10/19/22 11/19/22 release PT. folic acid 1 mg tablet 1 mg PO DAILY 10/19/22 11/19/22 glucosamine HCl 1,500 mg tablet 1,500 mg PO DAILY 10/19/22 11/19/22 omega-3 fatty acids 1,000 mg 1,000 mg PO BID 10/19/22 11/19/22 capsule cholecalciferol (vitamin D3) 125 125 mcg PO DAILY 11/19/22 11/19/22 mcg (5,000 unit) tablet (Vitamin D3) Previous Rx's Medication Instructions Recorded metoprolol tartrate 50 mg tablet 50 mg PO BID #60 tabs 11/24/19 Current Inpatient Medications Acetaminophen (Acetaminophen 325 Mg Tab) 650 mg PO Q4H PRN PRN Reason: Pain or Fever Stop: 12/19/22 19:47 Enoxaparin Sodium (Enoxaparin Inj 40 Mg/0.4 Ml Syr) 40 mg SQ Q24H PEE Stop: 12/19/22 19:59 Hydralazine HCl (Hydralazine Hcl 20 Mg/Ml Vial) 5 mg IV Q6H PRN PRN Reason: Hypertension Stop: 12/19/22 20:18 Magnesium Hydroxide (Magnesium Hydroxide Susp 30 Ml Udc) 30 ml PO Q12H PRN PRN Reason: Constipation Stop: 12/19/22 19:47 Morphine Sulfate (Morphine Sulfate 2 Mg/Ml Carp) 2 mg IV Q30M PRN PRN Reason: Chest Pain Stop: 07/31/23 19:47 Nitroglycerin (Nitroglycerin Sl 0.4 Mg/Tab Tab) 0.4 mg SL Q5M PRN PRN Reason: Chest Pain Stop: 12/19/22 15:32 Ondansetron HCl (Ondansetron Inj 2 Mg/Ml 2 Ml Vial) 4 mg IV Q6H PRN PRN Reason: Nausea Stop: 12/19/22 19:47 Code Status & VTE Plan Code Status Patient is full code VTE Prophylaxis Plan VTE Prophylaxis will be ordered: Yes
[2022-11-19] MEDS ORDERED: ASPIRIN 81 MG ECTAB PO PRN (21:29)
[2022-11-19] MEDS ORDERED: traMADol HCL 50 MG TABLET PO PRN (21:51)
[2022-11-19] MEDS: METOPROLOL TARTRATE 50 MG TAB PO SCH (21:51)
[2022-11-19] MEDS ORDERED: PROMETHAZINE HCL 12.5 MG in SODIUM CHLORIDE 0.9% 50 ML IV PRN (21:52)
[2022-11-19] MEDS ORDERED: LORazepam 0.5 MG TAB PO PRN (21:52)
[2022-11-19] MEDS ORDERED: MoRPHine SULFATE 4 MG/ML 1 ML CARP\\VIAL IV PRN (21:52)
[2022-11-19] MEDS ORDERED: LOSARTAN POTASSIUM 25 MG TAB PO STA (21:54)
[2022-11-20 06:03] LABS: Hematocrit (blood only) 38.9 % (37.0-47.0); Hemoglobin 13.1 g/dl (12.0-16.0); Mean Corpuscular Hemoglobin 29.8 pg (25.0-34.0); Mean Corpuscular Hgb Conc 33.7 g/dL (32.0-36.0); Mean Corpuscular Volume 88.6 fL (80.0-100.0); Mean Platelet Volume 10.3 fL (9.4-12.4); Platelet Count 142 K/uL (130-400); RDW Coefficient of Variation 13.5 % (11.5-14.5); RDW Standard Deviation 44.3 fL (36.4-46.3); Red Blood Count 4.39 M/uL (4.20-5.40); White Blood Count 4.29 K/ul (4.8-10.8)
[2022-11-20 06:24] LABS: Calcium 8.8 mg/dl (8.6-10.3); Chol HDL Ratio 6.2 (0-5); Creatinine Clr Calc Pharmacy 71.4 ml/min; Est GFR (African American) 94.3 ml/min; Est GFR (Non-African American) 81.3 ml/min; Potassium 3.8 mmol/L (3.5-5.1)
[2022-11-20 06:25] LABS: Partial Thromboplastin Ratio 1.1; Partial Thromboplastin Time 30.1 Seconds (21.0-31.0)
[2022-11-20] MEDS ORDERED: LEVOTHYROXINE SODIUM 25 MCG TABLET PO SCH (06:30)
[2022-11-20] MEDS: METOPROLOL TARTRATE 50 MG TAB PO SCH (08:17)
[2022-11-20] MEDS ORDERED: LOSARTAN POTASSIUM 25 MG TAB PO SCH (09:00)
[2022-11-20] MEDS ORDERED: LOSARTAN POTASSIUM 50 MG TAB PO SCH (09:00)
[2022-11-20] MEDS ORDERED: FOLIC ACID 1 MG TAB PO SCH (09:00)
--- NOTE | 2022-11-20 09:32 | Cardiology Consultation ---
Date of Consultation November 20, 2022 Assessment & Plan (1) Chest pain: Mrs. Boss is a 71-year-old female with a history of Atypical Chest Pain, Palpitations, PSVT, PACs/PVCs, Mild Mitral Regurgitation, Hypertension, Hypercholesterolemia, Normal Coronary Arteries on Cardiac Catheterization 2010, and Plaque Psoriasis who presented to [facility] ER on 11/19/22 complaining of an Atypical Migratory Chest Discomfort lasting at least 10 hours on 11/19/22 with negative high sensitivity Troponin I levels and no acute changes on her EKG's which would suggest that this is was NOT cardiac in origin. Patient woke up at 3 a.m. on 11/19/22 for no particular reason and recognized that she was not feeling well in general and she had mild chest discomfort that migrated from the left chest to central lower chest/midepigastrium. 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 She eventually woke up and got out of bed and realized she still had the left chest pain that radiated to her left arm and jaw and this pain migrated to the midepigastrium and this seemed to radiate through to her back. These symptoms were continuously present throughout the day and lasted at least 10 to 12 hours. Her symptoms seemed to get slightly worse when she got up and moved around. Later on she developed mild nausea but denies any associated vomiting, diaphoresis, or dyspnea. She decided to come into the ER for further evaluation. On arrival at the ER the patient was noted to be markedly hypertensive at 204/92, she was given sublingual nitroglycerin as well as aspirin. As she was talking with the ER provider her symptoms improved dramatically and then resolved. She denies any chest pain, midepigastric pain, nausea, or any recurrent symptoms since then. Her BP's have improved. She continues to note palpitations leading up to this hospitalization -- they are described as "brief episodes of heart racing" for a second or 2, and she also describes "skipped beats." She denies any associated symptoms with any of her palpitations -- specifically denying any associated chest discomfort, SOB, near syncope, syncope, nausea, vomiting, or diaphoresis. Her work-up so far shows normal high sensitivity Troponin I levels of < 2.3, 3.3, 6.0, and 5.8 pg/mL. Normal CTA of the chest. CXR is unremarkable. EKG's show NSR without acute changes. Telemetry shows sinus rhythm with rare PAC's. Recommend the following: -- No further ischemic evaluation is necessary at this time. -- Increase Metoprolol Tartrate to 100 mg b.i.d.. -- Continue Aspirin 81 mg daily. -- Continue Losartan 50 mg daily. (2) Uncontrolled hypertension: BP's have improved. -- Consider renal arterial duplex to rule out renal artery stenosis. -- Increase Metoprolol Tartrate to 100 mg b.i.d.. -- Continue Losartan 50 mg daily. -- Low sodium diet. -- Monitor blood pressure at home and record your readings. -- Short term goal average BP is < 140/90. (3) Hypercholesterolemia: Recommend starting a statin based on her current fasting lipid panel. -- Can be started as an outpatient due to multiple medication changes while hospitalized. (4) Heart palpitations: (5) PSVT (paroxysmal supraventricular tachycardia): She has a history of PSVT, PAC's, and PVC's. Telemetry while hospitalized showed rare PAC's. -- We discussed the correlation between uncontrolled hypertension and ectopy/arrhythmias. -- Increase Metoprolol Tartrate to 100 mg b.i.d.. -- Minimize caffeine intake. -- Increase aerobic activities, ideally exercising for 45 minute 5 to 7 times/week. History of Present Illness Reason for Consultation: -- Chest Pain. -- Uncontrolled Hypertension. Requesting Physician: Aliza Moreau DO Attending Physician: Malcolm Perez MD History of Present Illness Mrs. Boss is a 71-year-old female with a history of Atypical Chest Pain, Palpitations, PSVT, PACs/PVCs, Mild Mitral Regurgitation, Hypertension, Hypercholesterolemia, Normal Coronary Arteries on Cardiac Catheterization 2010, and Plaque Psoriasis who presented to [facility] ER on 11/19/22 complaining of migratory chest discomfort. Patient woke up at 3 a.m. on 11/19/22 for no particular reason and recognized that she was not feeling well in general and she had mild chest discomfort that migrated from the left chest to central lower chest/midepigastrium. 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 She eventually woke up and got out of bed and realized she still had the left chest pain that radiated to her left arm and jaw and this pain migrated to the midepigastrium and this seemed to radiate through to her back. These symptoms were continuously present throughout the day and lasted at least 10 to 12 hours. Her symptoms seemed to get slightly worse when she got up and moved around. Later on she developed mild nausea but denies any associated vomiting, diaphoresis, or dyspnea. She decided to come into the ER for further evaluation. On arrival at the ER the patient was noted to be markedly hypertensive at 204/92, she was given sublingual nitroglycerin as well as aspirin. As she was talking with the ER provider her symptoms improved dramatically and then resolved. She denies any chest pain, midepigastric pain, nausea, or any recurrent symptoms since then. Her BP's have improved. She continues to note palpitations leading up to this hospitalization -- they are described as "brief episodes of heart racing" for a second or 2, and she also describes "skipped beats." She denies any associated symptoms with any of her palpitations -- specifically denying any associated chest discomfort, SOB, near syncope, syncope, nausea, vomiting, or diaphoresis. Her work-up so far shows normal high sensitivity Troponin I levels of < 2.3, 3.3, 6.0, and 5.8 pg/mL. Normal CTA of the chest. CXR is unremarkable. EKG's show NSR without acute changes. Telemetry shows sinus rhythm with rare PAC's. HISTORICAL BACKGROUND: Patient carries a long-standing history of palpitations. Prior ambulatory monitoring has shown occasional PACs/PVCs and very short runs of SVT. She has been seen by multiple cardiologists, and her symptoms have been treated with beta cami therapy. She also has a long-standing history of atypical chest pain, which is not exertional in nature. She underwent a cardiac catheterization in 2010 after a reportedly abnormal nuclear stress test, which showed normal coronary arteries. She has since undergone stress testing, which has been negative for ischemia. She presented to the [facility] ER on 02/11/2018 with complaints of palpitations. She described the palpitations as a fluttering in her chest. Her [id number], who is a nurse, came over and listened to her heart; she was reportedly found to have 3 regular beats prior to pause. She then took her home blood pressure which reported her heart rate as irregular and noted that her blood pressures were elevated. With palpitations she noted mild chest discomfort. In the ER patient was hypertensive with SBP's into the 180s. She was noted to be in sinus rhythm with PACs/PVCs. She was hypokalemic with a potassium of 3.0. Her home Metoprolol dose was increased and Triamterene-HCTZ was discontinued. She underwent a stress echocardiogram that was negative for ischemia. She presented to [facility] ER on 08/08/2018 with complaints of intermittent chest and jaw pain over the previous 2 days. She also noted elevated blood pressure readings as high as 199/97 when monitoring at home. Her pressure on arrival to the ER was 191/80. Laboratory evaluation including CBC, CMP, troponin, and TSH was unremarkable. CXR showed no active disease in the chest. EKG showed normal sinus rhythm with no acute ST-T wave abnormalities. She was offered admission for further evaluation, however, she preferred to go home and follow-up as an outpatient. She was seen for ER follow-up on 08/14/18. At that time, she reported continued elevated BP readings when monitoring at home. She did not feel as though Irbesartan was efficient in controlling her blood pressure and therefore refused to take the medication. She was therefore initiated on Amlodipine 5 mg daily. She was continued on Metoprolol Tartrate 50 mg b.i.d.. She presented to the ER again on 10/19/18 with headache, jaw and hear pain. Her blood pressure was significantly elevated upon arrival greater than 200/100. Head CT was unremarkable. Laboratory work was within normal limits. Her Amlodipine was increased to 10 mg daily and she was continued on Metoprolol Tartrate 50 mg b.i.d.. When seen in the office in followup she was also started on Chlorthalidone 25 mg daily. Patient wore a 7 Day Cardiac Event Monitor in August 2022 showing: -- Sinus rhythm with avg HR 72 bpm. -- Ten brief episodes of PSVT runs, longest of which was 12 beats in duration at 114 bpm. -- Patient triggered events correlated to sinus rhythm. -- Rare PAC/PVC. She was seen by [facility]iology on 10/19/22 and complained of increasing palpitations. Provider ordered an Echocardiogram and an MCOT Monitor. ECHOCARDIOGRAM 11/12/22: -- Normal biventricular systolic function. -- Normal chamber dimensions. -- LVEF 65% to 70%, with normal/hyperdynamic wall motion. -- Mild MR. -- No evidence of LVH. -- No significant changes compared to 09/29/2019 study. MCOT Monitor has not been read yet and is not on the chart. Allergies Allergy/AdvReac Type Severity Reaction Status Date / Time codeine AdvReac Intermediate Tachycardia Verified 11/19/22 17:32 lisinopril AdvReac Intermediate Cough Verified 11/19/22 17:32 adhesive AdvReac Mild Redness of Verified 11/19/22 17:32 Skin Home Medications Medication Instructions Recorded Confirmed Type levothyroxine 25 mcg tablet 25 mcg PO QAM 02/11/18 11/19/22 History metoprolol tartrate 50 mg tablet 50 mg PO BID #60 tabs 11/24/19 11/19/22 Rx losartan 25 mg tablet 25 mg PO DAILY 05/02/20 11/19/22 History aspirin 81 mg tablet,delayed 162 mg PO DAILY PRN NEEDED PER 10/19/22 11/19/22 History release PT. folic acid 1 mg tablet 1 mg PO DAILY 10/19/22 11/19/22 History glucosamine HCl 1,500 mg tablet 1,500 mg PO DAILY 10/19/22 11/19/22 History omega-3 fatty acids 1,000 mg 1,000 mg PO BID 10/19/22 11/19/22 History capsule cholecalciferol (vitamin D3) 125 125 mcg PO DAILY 11/19/22 11/19/22 History mcg (5,000 unit) tablet (Vitamin D3) Patient History Medical History A-fib Acute electrocardiogram changes Chest pain Heart palpitations Hypertension Hypothyroidism Mitral valve prolapse Surgical History History of cataract surgery Family History Other Cancer Hypertension Social History Smoking Status: Never smoker Second Hand Exposure: No; Do You Dip or Chew Tobacco: No; Tobacco Cessation Education Requested by Patient: No Hx Alcohol Use: No Hx Substance Use: No Preferred Language: [place] Communication Ability: Effective Director Strategy Required: No Beliefs That Will Affect Care: None Current Living Situation: Spouse Other Information That Helps Us Care for You: No Feels Safe at Home: Yes Safety Concerns: Feels Safe At This Time Assistive Devices: Glasses Review of Systems Review of Systems: 10 point ROS completed and is negative with the exception of what is mentioned in the HPI. Physical Exam Physical Exam: BP 143/74. HR 64 and regular. GENERAL: Patient in no acute distress. HEENT: Head is atraumatic, normocephalic. EOM's intact. Facies symmetric. No perioral cyanosis. NECK: No JVD. JVP is not elevated. Carotid upstrokes are + 2 bilaterally without bruits. CHEST/LUNGS: Clear to auscultation throughout all lung hill. No wheezes, rales, or crackles. CVS: S1 and S2 are regular without obvious murmurs, gallops, or rubs. PMI is nonpalpable. No lifts, heaves, or thrills. No abdominal aortic or renal bruits. ABDOMINAL EXAM: Bowel sounds are present. No masses, organomegaly, or tenderness. EXTREMITIES: No clubbing or cyanosis. Trace edema of left ankle, no edema of the right lower extremity.. Intact posterior tibial and radial pulses bilaterally. NEUROLOGIC EXAM: Patient is awake, alert, and oriented. Pleasant and cooperative. Answers questions appropriately. Speech is clear. Normal movement in all 4 extremities. Results & Data Vital Signs (Past 12 Hours) Vital Signs Temp Pulse Pulse Resp BP Pulse Ox O2 Del Method 11/20/22 07:30 64 11/20/22 07:30 Room Air 11/20/22 07:20 36.7 C 65 18 143/74 H 96 Room Air 11/20/22 03:24 36.6 C 60 18 116/56 L 96 Room Air 11/19/22 22:53 68 11/19/22 22:46 36.4 C L 70 18 143/76 H 97 Room Air Laboratory Results Laboratory Results - last 24 hr 11/19/22 11/19/22 11/19/22 15:53 15:53 15:53 WBC 5.44 RBC 4.92 Hgb 14.8 Hct 44.1 MCV 89.6 MCH 30.1 MCHC 33.6 RDW Std Deviation 43.8 RDW Coeff of Che 13.4 Plt Count 178 MPV 10.2 Immature Gran % (Auto) 0.2 Neut % (Auto) 59.8 Lymph % (Auto) 32.2 [place] % (Auto) 7.0 Eos % (Auto) 0.6 Baso % (Auto) 0.2 Neut # (Auto) 3.26 Lymph # (Auto) 1.75 [place] # (Auto) 0.38 Eos # (Auto) 0.03 Baso # (Auto) 0.01 Immature Gran # (Auto) 0.01 PT 10.5 INR 1.0 APTT 27.3 PTT Ratio 1.0 Sodium 141 Potassium 3.8 Chloride 108 H Carbon Dioxide 26 Anion Gap 7 BUN 15 Creatinine 0.76 Est Cr Clr Drug Dosing 70.2 Est GFR ( Amer) 92.8 Est GFR (Non-Af Amer) 80.0 BUN/Creatinine Ratio 19.7 Glucose 123 H Calcium 9.7 Total Bilirubin 0.4 AST 19 ALT 17 Alkaline Phosphatase 71 Troponin I High Sens < 2.3 Total Protein 7.4 Albumin 4.8 Globulin 2.6 Albumin/Globulin Ratio 1.8 Triglycerides Cholesterol LDL Cholesterol, Calc VLDL Cholesterol, Calc HDL Cholesterol Cholesterol/HDL Ratio Lipase SARS-CoV-2, RNA, NAAT 11/19/22 11/19/22 11/20/22 15:54 18:00 00:47 WBC RBC Hgb Hct MCV MCH MCHC RDW Std Deviation RDW Coeff of Che Plt Count MPV Immature Gran % (Auto) Neut % (Auto) Lymph % (Auto) [place] % (Auto) Eos % (Auto) Baso % (Auto) Neut # (Auto) Lymph # (Auto) [place] # (Auto) Eos # (Auto) Baso # (Auto) Immature Gran # (Auto) PT INR APTT PTT Ratio Sodium Potassium Chloride Carbon Dioxide Anion Gap BUN Creatinine Est Cr Clr Drug Dosing Est GFR ( Amer) Est GFR (Non-Af Amer) BUN/Creatinine Ratio Glucose Calcium Total Bilirubin AST ALT Alkaline Phosphatase Troponin I High Sens 3.3 6.0 Total Protein Albumin Globulin Albumin/Globulin Ratio Triglycerides Cholesterol LDL Cholesterol, Calc VLDL Cholesterol, Calc HDL Cholesterol Cholesterol/HDL Ratio Lipase 23 SARS-CoV-2, RNA, NAAT NEGATIVE 07/18/23 07/18/23 07/18/23 05:45 05:45 05:45 WBC 4.29 L RBC 4.39 Hgb 13.1 Hct 38.9 MCV 88.6 MCH 29.8 MCHC 33.7 RDW Std Deviation 44.3 RDW Coeff of Che 13.5 Plt Count 142 MPV 10.3 Immature Gran % (Auto) Neut % (Auto) Lymph % (Auto) [place] % (Auto) Eos % (Auto) Baso % (Auto) Neut # (Auto) Lymph # (Auto) [place] # (Auto) Eos # (Auto) Baso # (Auto) Immature Gran # (Auto) PT INR APTT 30.1 PTT Ratio 1.1 Sodium 143 Potassium 3.8 Chloride 111 H Carbon Dioxide 25 Anion Gap 7 BUN 12 Creatinine 0.75 Est Cr Clr Drug Dosing 71.4 Est GFR ( Amer) 94.3 Est GFR (Non-Af Amer) 81.3 BUN/Creatinine Ratio 16.0 Glucose 107 H Calcium 8.8 Total Bilirubin AST ALT Alkaline Phosphatase Troponin I High Sens Total Protein Albumin Globulin Albumin/Globulin Ratio Triglycerides 207 H Cholesterol 237 H LDL Cholesterol, Calc 158 VLDL Cholesterol, Calc 41 H HDL Cholesterol 38 Cholesterol/HDL Ratio 6.2 H Lipase SARS-CoV-2, RNA, NAAT 11/20/22 05:45 WBC RBC Hgb Hct MCV MCH MCHC RDW Std Deviation RDW Coeff of Che Plt Count MPV Immature Gran % (Auto) Neut % (Auto) Lymph % (Auto) [place] % (Auto) Eos % (Auto) Baso % (Auto) Neut # (Auto) Lymph # (Auto) [place] # (Auto) Eos # (Auto) Baso # (Auto) Immature Gran # (Auto) PT INR APTT PTT Ratio Sodium Potassium Chloride Carbon Dioxide Anion Gap BUN Creatinine Est Cr Clr Drug Dosing Est GFR ( Amer) Est GFR (Non-Af Amer) BUN/Creatinine Ratio Glucose Calcium Total Bilirubin AST ALT Alkaline Phosphatase Troponin I High Sens 5.8 Total Protein Albumin Globulin Albumin/Globulin Ratio Triglycerides Cholesterol LDL Cholesterol, Calc VLDL Cholesterol, Calc HDL Cholesterol Cholesterol/HDL Ratio Lipase SARS-CoV-2, RNA, NAAT Diagnostic Findings CXR 11/19/22: Lung volumes are normal. Lungs are clear. There is no pneumothorax or pleural effusion. Cardiac size is normal. Mediastinal contours are normal. There is no evidence for pulmonary edema. IMPRESSION: -- No acute cardiopulmonary findings. CTA CHEST 11/19/22: Caliber of the thoracic aorta is normal. There is no intramural hematoma or thoracic aortic dissection. There is mild calcified plaque along the aortic arch. There is no pericardial effusion. No pulmonary emboli are identified. No thoracic lymphadenopathy is present. There is no pneumothorax or pleural effusion. No consolidation to suggest pneumonia. No acute fractures within the visualized bony thorax are present. The gallbladder is surgically absent. IMPRESSION: 1. No thoracic aortic dissection. 2. No acute intrathoracic findings. Medications Administered Medications levothyroxine 25 mcg tablet 25 mcg PO QAM 02/11/18 [History Confirmed 11/19/22] metoprolol tartrate 50 mg tablet 50 mg PO BID #60 tabs 11/24/19 [Rx Confirmed 11/19/22] losartan 25 mg tablet 25 mg PO DAILY 05/02/20 [History Confirmed 11/19/22] aspirin 81 mg tablet,delayed release 162 mg PO DAILY PRN NEEDED PER PT. 10/19/22 [History Confirmed 11/19/22] folic acid 1 mg tablet 1 mg PO DAILY 10/19/22 [History Confirmed 11/19/22] glucosamine HCl 1,500 mg tablet 1,500 mg PO DAILY 10/19/22 [History Confirmed 11/19/22] omega-3 fatty acids 1,000 mg capsule 1,000 mg PO BID 10/19/22 [History Confirmed 11/19/22] cholecalciferol (vitamin D3) 125 mcg (5,000 unit) tablet (Vitamin D3) 125 mcg PO DAILY 11/19/22 [History Confirmed 11/19/22] Home Medications Acetaminophen (Acetaminophen 325 Mg Tab) 650 mg PO Q4H PRN PRN Reason: Pain or Fever Stop: 12/19/22 19:47 Aspirin (Aspirin 81 Mg Ectab) 162 mg PO DAILY PRN PRN Reason: NEEDED PER PT. Stop: 12/19/22 21:28 Enoxaparin Sodium (Enoxaparin Inj 40 Mg/0.4 Ml Syr) 40 mg SQ Q24H PEE Stop: 12/19/22 19:59 Last Admin: 11/19/22 21:52 Dose: 40 mg Folic Acid (Folic Acid 1 Mg Tab) 1 mg PO DAILY PEE Stop: 12/20/22 08:59 Last Admin: 11/20/22 08:17 Dose: 1 mg Hydralazine HCl (Hydralazine Hcl 20 Mg/Ml Vial) 10 mg IV Q6H PRN PRN Reason: Hypertension Stop: 12/19/22 20:18 Promethazine HCl 12.5 mg/ (Sodium Chloride) 50.5 mls @ 202 mls/hr IV Q6H PRN PRN Reason: Nausea And Vomiting Stop: 12/19/22 21:51 Levothyroxine Sodium (Levothyroxine Sodium 25 Mcg Tablet) 25 mcg PO DAILYBB [facility] Stop: 12/20/22 06:29 Last Admin: 11/20/22 06:07 Dose: 25 mcg Lorazepam (Lorazepam 0.5 Mg Tab) 0.5 mg PO TID PRN PRN Reason: Anxiety Stop: 12/19/22 21:51 Losartan Potassium (Losartan Potassium 50 Mg Tab) 50 mg PO DAILY [facility] Stop: 12/20/22 08:59 Last Admin: 11/20/22 08:17 Dose: 50 mg Magnesium Hydroxide (Magnesium Hydroxide Susp 30 Ml Udc) 30 ml PO Q12H PRN PRN Reason: Constipation Stop: 12/19/22 19:47 Metoprolol Tartrate (Metoprolol Tartrate 50 Mg Tab) 50 mg PO BID [facility] Stop: 12/19/22 21:28 Last Admin: 11/20/22 08:17 Dose: 50 mg Morphine Sulfate (Morphine Sulfate 4 Mg/Ml 1 Ml Carp\\Vial) 4 mg IV Q4H PRN PRN Reason: Pain Stop: 12/03/22 21:51 Nitroglycerin (Nitroglycerin Sl 0.4 Mg/Tab Tab) 0.4 mg SL Q5M PRN PRN Reason: Chest Pain Stop: 12/19/22 15:32 Last Admin: 11/19/22 21:47 Dose: 0.4 mg Ondansetron HCl (Ondansetron Inj 2 Mg/Ml 2 Ml Vial) 4 mg IV Q6H PRN PRN Reason: Nausea Stop: 12/19/22 19:47 Tramadol HCl (Tramadol Hcl 50 Mg Tablet) 25 - 50 mg PO Q4H PRN PRN Reason: Pain Stop: 12/19/22 21:50 PG Care Time/CCT Total # of Minutes Spent Total Time Spent with Patient: Total time spent is greater than 50% in coordination of care (as documented) at patient's floor/unit and/or counseling patient:47 C[place] [address] INT INP/OBS CARE 255MIN Patient Type Established Medical Decision Making Moderate Complexity Diagnoses Chest pain R07.9 Uncontrolled hypertension I10 Hypercholesterolemia E78.00 Heart palpitations R00.2 PSVT (paroxysmal supraventricular tachycardia) I47.1 Time Spent (min) 65
--- NOTE | 2022-11-20 12:29 | Discharge Summary ---
Discharge Summary Date of Service November 20, 2022 Admission HPI Per Admitting Provider 71 year old patient with history of hypertension , hypothyroidism, mitral valve prolapse, hx of afib recently seen by cardiology in their office presented to the hospital with uncontrolled blood pressure and mid sternal chest pain radiating to the back. intial blood pressure showed systolic in the 200s . patient was given ntg and a dose of hydralazinel. IN view of the mid sternal chest pain a ct angio was done to rule out aortic dissection . Patients initial trops were negative In view of the high uncontrolled bp it was decided to observe the patient for 24 hours at time of interview it was noted that patient had chest pain wiht radiation to left arm. initial ekg was negative or st-t changes . no shortness of breath Principal Dx & Hospital Course #1 = Principal Diagnosis (1) Chest pain, exertional: Observation vitals as protocol serial trops cards consult recent echo as outpatient. (2) Uncontrolled hypertension: Iv hydralazine q6 continue losartan and metoprolol if blood pressure does not drop will consider adding labetalol as well (3) Peripheral edema: (4) Hypothyroidism: continue home meds (5) Mitral valve prolapse: chronic (6) A-fib: rate controlled at this time Plan Patient is been admitted to tele unit will consider adding labetalol if blood pressure does not drop. will continue to moniter Dvt prophylaxis: continue lovenox Updated Medication List Medication Instructions Recorded Confirmed Type levothyroxine 25 mcg tablet 25 mcg PO QAM 02/11/18 11/19/22 History metoprolol tartrate 50 mg tablet 50 mg PO BID #60 tabs 11/24/19 11/19/22 Rx losartan 25 mg tablet 25 mg PO DAILY 05/02/20 11/19/22 History aspirin 81 mg tablet,delayed 162 mg PO DAILY PRN NEEDED PER 10/19/22 11/19/22 History release PT. folic acid 1 mg tablet 1 mg PO DAILY 10/19/22 11/19/22 History glucosamine HCl 1,500 mg tablet 1,500 mg PO DAILY 10/19/22 11/19/22 History omega-3 fatty acids 1,000 mg 1,000 mg PO BID 10/19/22 11/19/22 History capsule cholecalciferol (vitamin D3) 125 125 mcg PO DAILY 11/19/22 11/19/22 History mcg (5,000 unit) tablet (Vitamin D3) losartan 50 mg tablet 50 mg PO DAILY #30 tabs 11/20/22 Rx metoprolol tartrate 100 mg tablet 100 mg PO BID #60 tabs 11/20/22 Rx Hospital Stay Data Consultations 11/19/22 19:30 ED Decision to Admit Stat 11/19/22 20:15 Consult Cardiology Routine Diagnostic Imagining Performed 11/19/22 16:48 CT angio chest dissec wo/w con Stat Pending Results Patient Have Any Pending Studies at Discharge: No Discharge Instructions Given to Patient (Per Discharging Provider) Please take all medications as instructed on discharge list below. Your losartan was doubled and metoprolol was increased during this hospital stay. Please follow-up with your primary care doctor within 1 week of hospital discharge to ensure your blood pressure is within goal range and your palpitations have improved. Additionally, as discussed, your cardiovascular risk is increased as a result of your high cholesterol. Please discuss alternatives to statin therapies with your primary care physician. Congratulations again on your 15 pound weight loss. As you mentioned difficulties with losing weight, you may benefit from a nutrition consult and consideration of a GLP-1 agonist for weight loss. Ozempic would be an example of this drug. It was a pleasure taking care of you! Please call if you have any questions or problems. You can reach a [facility] hospitalist on duty at [facility] 24 hours a day by calling [phone]. Take care of yourself. Aliza Moreau, DO [facility]
--- NOTE | 2022-11-20 15:02 | Electrocardiogram Report ---
Test Reason : Blood Pressure : / mmHG Vent. Rate : 074 BPM Atrial Rate : 074 BPM P-R Int : 148 ms QRS Dur : 072 ms QT Int : 402 ms P-R-T Axes : 061 035 027 degrees QTc Int : 446 ms Normal sinus rhythm Normal ECG When compared with ECG of 02-MAY-2020 18:58, Previous ECG has undetermined rhythm, needs review Nonspecific T wave abnormality has replaced inverted T waves in Inferior leads Confirmed by Malcolm Perez ([id number]) on 11/20/2022 3:02:01 PM Referred By: Confirmed By:Malcolm Perez
--- NOTE | 2022-11-20 15:12 | Electrocardiogram Report ---
Test Reason : Blood Pressure : / mmHG Vent. Rate : 067 BPM Atrial Rate : 067 BPM P-R Int : 148 ms QRS Dur : 082 ms QT Int : 422 ms P-R-T Axes : 052 052 031 degrees QTc Int : 445 ms Normal sinus rhythm Normal ECG When compared with ECG of 19-NOV-2022 15:39, (unconfirmed) No significant change was found Confirmed by Malcolm Perez ([id number]) on 11/20/2022 3:12:30 PM Referred By: REFERRED SELF Confirmed By:Malcolm Perez
--- NOTE | 2022-11-20 15:21 | Electrocardiogram Report ---
Test Reason : Blood Pressure : / mmHG Vent. Rate : 057 BPM Atrial Rate : 057 BPM P-R Int : 158 ms QRS Dur : 080 ms QT Int : 460 ms P-R-T Axes : 043 046 030 degrees QTc Int : 447 ms Sinus bradycardia Otherwise normal ECG When compared with ECG of 19-NOV-2022 22:13, (unconfirmed) No significant change was found Confirmed by Malcolm Perez ([id number]) on 11/20/2022 3:21:11 PM Referred By: REFERRED SELF Confirmed By:Malcolm Perez
[2022-11-20] MEDS ORDERED: METOPROLOL TARTRATE 100 MG TAB PO SCH (21:00)
== END 2022-11-20 13:25 | disposition home or self-care (01) ==
LOC: ED 15:23 → 2E 15:23 → SUATTDRO 19:48 → 2E 20:45